=== PATIENT | male | born 1940 | race Caucasian/White ===

== ENCOUNTER → 2017-04-02 | Outpatient (CLI) | payer MEDICARE, OTHER ==
--- NOTE | 2017-04-02 11:08 | US ---
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 EXAM MEASUREMENTS: Gland Size: 5.4 x 5.5 x 3.4cm Volume: 52.5ml Predicted PSA: 6.30 ng/ml Actual PSA (if available):3.804 ng/ml Central Gland: multiple small cysts are noted throughout; multiple small calcifications are imaged; o stewart, heterogeneous area = 0.6 x 0.8 x 0.4cm is noted right CZ at periphery with Peripheral Zone and another oval heterogeneous area = 0.9 x 0.8 x 0.6cm is seen in left CZ at periphery of Peripheral Zon e. Peripheral Zone: Right mid PZ is oval, hypoechoic and heterogeneous area = 0.7 x 1.1 x 0.6cm with col or flow seen at periphery. In left PZ an oval, hypoechoic and heterogeneous area = 1.4 x 1.1 x 1.1cm is also imaged. Internal color flow is noted in this left PZ mass. Enlarged prostate gland is calculated as is >30ml. IMPRESSION: 1. Suspicious abnormalities within the peripheral zone. Tissue diagnosis is recommended. 2. Prostate glandular enlargement. Predicted PSA = volume x 0.12 ng/ml Calculated Volume = 0.5236 x L x W x H
== END | disposition home or self-care (01) ==
LOC: RADUSMAIN 08:59
PROVIDERS: ATTEND Family Medicine
DX: N40.0 Benign prostatic hyperplasia without lower urinary tract symptoms (principal)
CPT/HCPCS: 76872

== ENCOUNTER → 2017-11-11 | Outpatient (CLI) | payer MEDICARE, OTHER ==
--- NOTE | 2017-11-11 10:01 | FL ---
ESOPHOGRAM. HISTORY: Dysphagia Esophagram was performed per the air contrast technique. The patient swallowed barium and effervesce nt crystals without difficulty or delay. Esophageal peristalsis and motility appear to be within normal limits. There is no evidence for filling defect, mass or diverticulum. There is 50% luminal narrowing distal esophagus proximal to a sliding-type hiatal hernia. Mucosal fol d pattern is also increased. Correlate for possible Luis's esophagus with reflux. Subsequently single contrast cervical esophagram was performed which fails demonstrate evidence for a spiration penetration or mass. IMPRESSION: 1.There is 50% luminal narrowing distal esophagus proximal to a sliding-type hiatal hernia. Mucosal f old pattern is also increased. Correlate for possible Luis's esophagus with reflux. Direct visuali zation recommended.
== END | disposition home or self-care (01) ==
LOC: RADFLWHC 08:54
PROVIDERS: ATTEND Family Medicine
DX: K44.9 Diaphragmatic hernia without obstruction or gangrene (principal)
CPT/HCPCS: 74220

== ENCOUNTER 2017-12-03 06:19 | Day surgery (SDC) | payer MEDICARE, OTHER ==
[2017-11-29 14:01] VITALS: BMI 25.8
[2017-12-03] MEDS ORDERED: LIDOCAINE 1% 20 ML VIAL (10MG/ML) FOR IV START INTRADERMA PRN (06:52)
[2017-12-03] MEDS ORDERED: LACTATED RINGERS 1,000 ML IV SCH (07:00)
[2017-12-03 07:04] VITALS: TEMP 97.8
[2017-12-03 07:11] LABS: Glucose,Whole Blood 124 mg/dL (75-99)
[2017-12-03] MEDS ORDERED: PROPOFOL 10 MG/ML 20 ML VIAL IV ONE (08:00)
[2017-12-03 08:36] VITALS: RESP 16
--- NOTE | 2017-12-03 08:43 | P.PCN ---
Date of Procedure: 12/03/17 Procedure(s) Performed: Procedure: Esophagogastroduodenoscopy and biopsy. Preoperative diagnosis: Dysphagia and abnormal barium swallow. Postoperative diagnosis: 1. Moderately sized hiatal hernia and abnormal distal esophagus showing circumferential nodularity, friability and poor distention raising the possibility of neoplasia on a background of Luis's esophagus. 2. Multiple biopsies obtained. Preparation and sedation: Was provided by anesthesia. Brief clinical history: The patient is a 77-year-old male with history of dysphagia. He underwent a barium swallow towards the end of October that showed a hiatal hernia and a 50% decrease in the lumen of the distal esophagus. The radiologist raised the possibility of Luis's esophagus and recommended direct visualization. Procedure: With the patient on his left lateral decubitus position and after informed consent and adequate sedation, I passed the Olympus-GIF 160 video upper endoscope through the cricopharyngeus down the esophagus. The tubular esophagus continues to around 36 cm from the incisors, then there is a moderately sized hiatal hernia. There was friability and oozing of blood that was noted initially, even before any contact with the endoscope, and the distal esophagus showed circumferential nodularity, friability and poor distention. It was hard to locate a jim-GE junction because of how the proximal esophagus transitions into the distal area and because of the friability and oozing of blood, but I suspect that the abnormalities in the lower 7 or 8 cm of the esophagus are on a background of Luis's esophagus. I obtained multiple biopsies from that segment. There was no hindrance to the advancement of the endoscope into the stomach. The stomach was insufflated with air and inspected in detail including the retroflex view in the cardia. Finally, the endoscope was passed through the pylorus into the duodenum. Pyloric channel, duodenal bulb, post bulbar area and descending duodenum appeared within normal limits. The patient tolerated the procedure well and I did not obtain any additional biopsies other than in the distal esophagus as mentioned above. Plan: I summarized the findings to the patient and his family. Will await biopsy results and make further plans based on his course and biopsy results.
[2017-12-03 08:48] LABS: Glucose,Whole Blood 136 mg/dL (75-99)
[2017-12-03 08:56] VITALS: BP 118/68; PULSE 70
== END 2017-12-03 09:27 | disposition home or self-care (01) ==
LOC: ORWHC2ENDO 06:19
DX: K21.0 Gastro-esophageal reflux disease with esophagitis (principal); K44.9 Diaphragmatic hernia without obstruction or gangrene; E11.9 Type 2 diabetes mellitus without complications; K22.2 Esophageal obstruction; K22.70 Barrett's esophagus without dysplasia; E78.5 Hyperlipidemia, unspecified; I10 Essential (primary) hypertension; Z88.2 Allergy status to sulfonamides; Z88.1 Allergy status to other antibiotic agents; Z85.46 Personal history of malignant neoplasm of prostate; Z79.899 Other long term (current) drug therapy
CPT/HCPCS: 43239; J2704; 88305; 88313; 88341; 88342

== ENCOUNTER 2018-03-04 07:38 | Day surgery (SDC) | payer MEDICARE, OTHER ==
[~2018-03-04 07:38] MED LIST: LACTATED RINGERS 1,000 ML IV SCH; LIDOCAINE 1% 20 ML VIAL (10MG/ML) FOR IV START INTRADERMA PRN
[2018-03-04 09:04] VITALS: TEMP 98.2
[2018-03-04 09:34] LABS: Glucose,Whole Blood 117 mg/dL (75-99)
[2018-03-04 10:22] VITALS: RESP 16
--- NOTE | 2018-03-04 10:28 | P.PCN ---
Date of Procedure: 03/04/18 Procedure(s) Performed: Procedure: Esophagogastroduodenoscopy and biopsy. Preoperative diagnosis: History of dysphagia and abnormal barium swallow and EGD in October and November of this year. Postoperative diagnosis: 1. Moderately sized hiatal hernia with no obvious esophagitis or Luis's esophagus. 2. Nonobstructing distal esophageal stricture. 3. Mild gastritis. 4. Biopsies obtained from the antrum and esophagus. Preparation and sedation: Was provided by anesthesia. Brief clinical history: The patient is a 77-year-old male who was last evaluated in November of this year for dysphagia and abnormal barium swallow. The patient had an upper endoscopy because his barium swallow showed decrease in the lumen of the of the distal esophagus by 50% and abnormal appearance of the wall of the esophagus. His EGD showed esophagitis and possible Luis's esophagus and multiple biopsies that were obtained did not show any evidence of malignancy. However, because of his symptoms and findings, I wanted to repeat exam after medical therapy to ascertain the absence of Luis's esophagus or cancer. The patient has been doing better with medical therapy. Procedure: With the patient on his left lateral decubitus position and after informed consent and adequate sedation, I passed the Olympus-GIF H190 video upper endoscope through the cricopharyngeus down the esophagus. GE junction was around 36 cm from the incisors and there was a moderately sized hiatal hernia as previously described. The distal esophagus showed healing of the esophagitis and no evidence of Luis's esophagus. There was some decrease in the lumen but there was no hesitation to the advancing of the endoscope. The endoscope was then passed into the stomach which was insufflated with air and was inspected in detail including the retroflex view in the cardia. There was some mottling and erythema in the antrum but no ulcers or erosions. Pyloric channel, duodenal bulb, post bulbar area and descending duodenum appeared within normal limits. Based on his history, I obtained biopsies from the antrum and esophagus then the endoscope was withdrawn. The patient tolerated the procedure well. Plan: The patient was reassured. I discussed with his as well. Will continue antireflux diet and measures and acid suppressive therapy and make further plans based on his course. He will follow up with you as planned.
[2018-03-04 10:52] VITALS: BP 143/81; PULSE 64
[2018-03-04] MEDS ORDERED: PROPOFOL 10 MG/ML 20 ML VIAL IV ONE (19:57)
== END 2018-03-04 11:10 | disposition home or self-care (01) ==
LOC: ORWHC2ENDO 07:38
DX: K29.50 Unspecified chronic gastritis without bleeding (principal); K22.2 Esophageal obstruction; K44.9 Diaphragmatic hernia without obstruction or gangrene; E11.9 Type 2 diabetes mellitus without complications; I10 Essential (primary) hypertension; E78.5 Hyperlipidemia, unspecified; N40.0 Benign prostatic hyperplasia without lower urinary tract symptoms; Z85.46 Personal history of malignant neoplasm of prostate; Z79.82 Long term (current) use of aspirin; Z79.4 Long term (current) use of insulin; Z79.899 Other long term (current) drug therapy; Z88.2 Allergy status to sulfonamides; Z88.8 Allergy status to other drugs, medicaments and biological substances
CPT/HCPCS: 88305; 43239; J2704

== ENCOUNTER → 2018-09-05 | Outpatient (CLI) | payer MEDICARE, OTHER ==
--- NOTE | 2018-09-05 15:13 | US ---
EXAMINATION TYPE: US kidneys/renal and bladder DATE OF EXAM: 09/05/2018 COMPARISON: US 2016 CLINICAL HISTORY: N18.3 CKD stage 3. CKD stage 3, history of kidney cysts EXAM MEASUREMENTS: Right Kidney: 9.0 x 5.4 x 5.0 cm Left Kidney: 9.7 x 5.3 x 5.4 cm Right Kidney: 1.2 x 1.1 x 1.1cm cyst superior pole previously measuring up to 1.1 cm on the exam of . Mild pelvocaliectasis, likely transient Left Kidney: 2 cysts superior pole with largest measuring 5.2 x 5.3 x 5.2cm, 2.7 x 2.6cm medial mid p ole hypoechoic area . The larger of these measured up to 4.7 cm on the exam of 10/19/2015 and the small er measures 3.7 cm. Bladder: wnl Bilateral Jets seen: yes There is no evidence for hydronephrosis at this point in time. No nephrolithiasis is seen. The urina ry bladder is anechoic. Bilateral ureteral jets are seen. Mild cortical renal thinning is seen on th e right greater than left. IMPRESSION: 1. Bilateral cortical renal cysts are seen. Although the left 2.7 cm lesion does not appear as a simp le cyst on today's examination this appears to be present on the prior of 10/19/2015 and smaller in siz e, possibly involuting with internal hemorrhage and/or protein. This could be confirmed with CT abdom en. 2. Mild right pelvocaliectasis is likely transient.
== END | disposition home or self-care (01) ==
LOC: RADUSWWP 14:02
PROVIDERS: ATTEND Internal Medicine Nephrology
DX: N28.1 Cyst of kidney, acquired (principal)
CPT/HCPCS: 76770

== ENCOUNTER 2018-11-29 13:12 | Inpatient (IN) | payer MEDICARE, OTHER ==
[2018-11-29] MEDS ORDERED: ASPIRIN 81 MG PO STA (13:58)
[2018-11-29] MEDS ORDERED: NITROGLYCERIN OINT 1 INCH/GM PACKET TOPICAL STA (13:58)
--- NOTE | 2018-11-29 14:13 | ED ---
General Adult HPI - General Chief complaint: Chest Pain Stated complaint: Chest pressure Time Seen by Provider: 11/29/18 13:30 Source: patient, RN notes reviewed Mode of arrival: ambulatory Limitations: no limitations - History of Present Illness Initial comments: Patient is a pleasant 78-year-old male presenting to the emergency Department with complaints of chest discomfort. Onset of symptoms was this morning. Patient states symptoms lasted a couple of hours. Patient had pressure in his chest. Symptoms have now resolved. Discomfort was mild. No associated dyspnea, nausea, or diaphoresis. No history of similar symptoms previously. No radiation of discomfort. - Related Data Home Medications Medication Instructions Recorded Confirmed Ascorbic Acid [Vitamin C] 500 mg PO BID 05/21/14 09/01/18 Aspirin 81 mg PO HS 05/21/14 09/01/18 INSULIN ASPART (NovoLOG) [NovoLOG 0 unit SQ AC-TID PRN 05/21/14 09/01/18 (formulary)] Lisinopril [Zestril] 5 mg PO QAM 05/21/14 09/01/18 NIFEdipine [NIFEdipine ER] 30 mg PO HS 05/21/14 09/01/18 Lutein 40 mg PO QAM 01/27/16 09/01/18 Cholecalciferol [Vitamin D3] 2,000 unit PO Q48H 11/29/17 09/01/18 K-Zyme 1 tab PO TID 11/29/17 09/01/18 Pravastatin Sodium [Pravachol] 20 mg PO HS 11/29/17 09/01/18 Tujeo 14 units SQ HS 11/29/17 09/01/18 Omeprazole Magnesium [PriLOSEC OTC] 20 mg PO QAM 03/03/18 09/01/18 Thyrotone 500 mg PO BID 03/03/18 09/01/18 Ascorbic Acid [Vitamin C] 500 mg PO DAILY 09/01/18 09/01/18 Cholecalciferol [Vitamin D3 (25 2,000 unit PO DAILY 09/01/18 09/01/18 Mcg = 1000 Iu)] Doxycycline [Vibramycin] 100 mg PO BID 09/01/18 09/01/18 Levothyroxine Sodium [Synthroid] 50 mcg PO DAILY 09/01/18 09/01/18 Allergies Allergy/AdvReac Type Severity Reaction Status Date / Time Sulfa (Sulfonamide AdvReac Rash/Hives Verified 11/29/18 13:54 Antibiotics) sulfamethoxazole AdvReac Rash/Hives Verified 11/29/18 13:54 [From Novra] trimethoprim [From ] AdvReac Rash/Hives Verified 11/29/18 13:54 Review of Systems ROS Statement: Those systems with pertinent positive or pertinent negative responses have been documented in the HPI. ROS Other: All systems not noted in ROS Statement are negative. Constitutional: Denies: fever Eyes: Denies: eye pain ENT: Denies: ear pain Respiratory: Denies: cough, dyspnea Cardiovascular: Reports: chest pain Endocrine: Denies: fatigue Gastrointestinal: Denies: abdominal pain Genitourinary: Denies: dysuria Musculoskeletal: Denies: back pain Skin: Denies: rash Neurological: Denies: weakness Past Medical History Past Medical History: Cancer, Diabetes Mellitus, Hyperlipidemia, Hypertension, Prostate Disorder Additional Past Medical History / Comment(s): C/O "CHOKING WITH FOOD, GETS GAS BUBBLE/PAIN, BARIUM TEST SHOWED NARROWING" ESOPHAGUS. MINOR CA PROSTATE, BEING MONITORED. History of Any Multi-Drug Resistant Organisms: None Reported Past Surgical History: Hernia Repair Additional Past Surgical History / Comment(s): Bilat Cataract Surgery. ING H ERNIA REPAIR. COLONOSCOPY Past Anesthesia/Blood Transfusion Reactions: Family History of Problems w/ Anesthesia Additional Past Anesthesia/Blood Transfusion Reaction / Comment(s): BROTHER: POST-OP DELIRIUM Past Psychological History: No Psychological Hx Reported Smoking Status: Never smoker - Past Family History Mother Family Medical History: No Reported History Father Family Medical History: No Reported History Additional Family Medical History / Comment(s): no family history diagnosis, pt states everyone is pretty healthy General Exam Limitations: no limitations General appearance: alert, in no apparent distress Head exam: Present: atraumatic Eye exam: Present: normal appearance, PERRL ENT exam: Present: normal oropharynx Neck exam: Present: normal inspection Respiratory exam: Present: normal lung sounds bilaterally Cardiovascular Exam: Present: regular rate, normal rhythm Expanded Peripheral pulses: 2+: Radial (R), Radial (L), Dorsalis Pedis (R), Dorsalis Pedis (L) GI/Abdominal exam: Present: soft. Absent: tenderness Extremities exam: Present: normal inspection. Absent: pedal edema, calf tenderness Neurological exam: Present: alert Psychiatric exam: Present: normal affect, normal mood Skin exam: Present: normal color Course Vital Signs 11/29/18 11/29/18 13:53 14:51 Temperature 98 F Pulse Rate 71 70 Respiratory 20 18 Rate Blood Pressure 150/96 149/89 O2 Sat by Pulse 98 97 Oximetry EKG Findings - EKG Comments: EKG Findings:: Sinus rhythm at 67. MN 160. QRS 110. QT 406. QTc 429. Left axis. Left anterior fascicular block. No acute ST change Medical Decision Making - Medical Decision Making Patient reevaluated and resting comfortably in bed. Patient and family updated on results and plan. Dr. Lewis has been paged, covering for Dr. Garcia, covers for Dr. Marcos for admission. - Lab Data Result diagrams: 11/29/18 14:28 11/29/18 14:28 Lab Results 11/29/18 11/29/18 11/29/18 Range/Units 14:28 14:28 14:28 WBC 8.3 (3.8-10.6) k/uL RBC 5.17 (4.30-5.90) m/uL Hgb 15.0 (13.0-17.5) gm/dL Hct 46.0 (39.0-53.0) % MCV 88.9 (80.0-100.0) fL MCH 29.1 (25.0-35.0) pg MCHC 32.7 (31.0-37.0) g/dL RDW 14.3 (11.5-15.5) % Plt Count 215 (150-450) k/uL Neutrophils % 72 % Lymphocytes % 14 % Monocytes % 7 % Eosinophils % 3 % Basophils % 3 % Neutrophils # 6.0 (1.3-7.7) k/uL Lymphocytes # 1.2 (1.0-4.8) k/uL Monocytes # 0.6 (0-1.0) k/uL Eosinophils # 0.2 (0-0.7) k/uL Basophils # 0.3 H (0-0.2) k/uL PT 10.5 (9.0-12.0) sec INR 1.0 (<1.2) APTT 22.1 (22.0-30.0) sec Sodium 137 (137-145) mmol/L Potassium 3.0 L (3.5-5.1) mmol/L Chloride 103 (98-107) mmol/L Carbon Dioxide 24 (22-30) mmol/L Anion Gap 10 mmol/L BUN 25 H (9-20) mg/dL Creatinine 1.23 (0.66-1.25) mg/dL Est GFR (CKD-EPI)AfAm 66 (>60 ml/min/1.73 sqM) Est GFR (CKD-EPI)NonAf 57 (>60 ml/min/1.73 sqM) Glucose 141 H (74-99) mg/dL Calcium 10.4 H (8.4-10.2) mg/dL Magnesium 1.9 (1.6-2.3) mg/dL Total Bilirubin 1.1 (0.2-1.3) mg/dL AST 31 (17-59) U/L ALT 26 (21-72) U/L Alkaline Phosphatase 67 (38-126) U/L Creatine Kinase 137 (55-170) U/L Troponin I (0.000-0.034) ng/mL Total Protein 6.6 (6.3-8.2) g/dL Albumin 3.8 (3.5-5.0) g/dL 11/29/18 Range/Units 14:28 WBC (3.8-10.6) k/uL RBC (4.30-5.90) m/uL Hgb (13.0-17.5) gm/dL Hct (39.0-53.0) % MCV (80.0-100.0) fL MCH (25.0-35.0) pg MCHC (31.0-37.0) g/dL RDW (11.5-15.5) % Plt Count (150-450) k/uL Neutrophils % % Lymphocytes % % Monocytes % % Eosinophils % % Basophils % % Neutrophils # (1.3-7.7) k/uL Lymphocytes # (1.0-4.8) k/uL Monocytes # (0-1.0) k/uL Eosinophils # (0-0.7) k/uL Basophils # (0-0.2) k/uL PT (9.0-12.0) sec INR (<1.2) APTT (22.0-30.0) sec Sodium (137-145) mmol/L Potassium (3.5-5.1) mmol/L Chloride (98-107) mmol/L Carbon Dioxide (22-30) mmol/L Anion Gap mmol/L BUN (9-20) mg/dL Creatinine (0.66-1.25) mg/dL Est GFR (CKD-EPI)AfAm (>60 ml/min/1.73 sqM) Est GFR (CKD-EPI)NonAf (>60 ml/min/1.73 sqM) Glucose (74-99) mg/dL Calcium (8.4-10.2) mg/dL Magnesium (1.6-2.3) mg/dL Total Bilirubin (0.2-1.3) mg/dL AST (17-59) U/L ALT (21-72) U/L Alkaline Phosphatase (38-126) U/L Creatine Kinase (55-170) U/L Troponin I 0.029 (0.000-0.034) ng/mL Total Protein (6.3-8.2) g/dL Albumin (3.5-5.0) g/dL - Radiology Data Radiology results: image reviewed Disposition Clinical Impression: Chest pain Disposition: ADMITTED IP TO THIS [facility] Is patient prescribed a controlled substance at d/c from ED?: No Referrals: Ronal Marcos DO [Primary Care Provider] - 1-2 days Decision Time: 15:18
[2018-11-29 14:44] LABS: Basophils # (A) 0.3 k/uL (0-0.2); Basophils % (A) 3 %; Eosinophils # (A) 0.2 k/uL (0-0.7); Eosinophils % (A) 3 %; Lymphocytes # (A) 1.2 k/uL (1.0-4.8); Lymphocytes % (A) 14 %; MCH 29.1 pg (25.0-35.0); MCHC 32.7 g/dL (31.0-37.0); MCV 88.9 fL (80.0-100.0); Mean Platelet Volume 6.5; Monocytes # (A) 0.6 k/uL (0-1.0); Monocytes % (A) 7 %; Neutrophils % (A) 72 %; Platelet Count 215 k/uL (150-450); RBC 5.17 m/uL (4.30-5.90); RDW 14.3 % (11.5-15.5); WBC 8.3 k/uL (3.8-10.6)
[2018-11-29 14:50] LABS: Albumin 3.8 g/dL (3.5-5.0); Calcium 10.4 mg/dL (8.4-10.2); Magnesium 1.9 mg/dL (1.6-2.3); Total Bilirubin 1.1 mg/dL (0.2-1.3); Total Protein 6.6 g/dL (6.3-8.2)
[2018-11-29 14:54] LABS: Partial Thromboplastin Time 22.1 sec (22.0-30.0); Prothrombin Time 10.5 sec (9.0-12.0)
[2018-11-29] MEDS ORDERED: NITROGLYCERIN SL TABS 0.4 MG TAB SUBLINGUAL PRN (15:18)
--- NOTE | 2018-11-29 15:24 | XR ---
EXAMINATION TYPE: XR chest 2V DATE OF EXAM: 11/29/2018 COMPARISON: 05/22/2014 HISTORY: 78-year-old male with chest pain TECHNIQUE: PA and lateral views FINDINGS: Rightward patient rotation alters the normal cardiac and mediastinal contours. Heart borderline in si ze. Elongation/ectasia of the thoracic aorta. Interstitial prominence without consolidation or pleura l effusion. IMPRESSION: Limited, rotated exam. No definite acute process.
[2018-11-29] MEDS ORDERED: ALPRAZolam 0.25 MG TAB PO PRN (16:45)
[2018-11-29] MEDS ORDERED: TEMAZEPAM 15 MG CAP PO PRN (16:45)
[2018-11-29] MEDS ORDERED: ACETAMINOPHEN TAB 500 MG TAB PO PRN (16:45)
[2018-11-29] MEDS ORDERED: Magnesium Replacement Protocol 1 EACH MISC MISCELLANE PRN (16:46)
[2018-11-29] MEDS ORDERED: Potassium Replacement Protocol 1 EACH MISC MISCELLANE PRN (16:46)
[2018-11-29 16:48] LABS: Glucose,Whole Blood 138 mg/dL (75-99)
[2018-11-29] MEDS: INSULIN ASPART (NovoLOG) 100 UNIT/ML VIAL SQ SCH ×2 (17:19→20:13)
[2018-11-29] MEDS: NITROGLYCERIN OINT 1 INCH/GM PACKET TOPICAL SCH (17:19)
--- NOTE | 2018-11-29 18:31 | HP ---
HISTORY AND PHYSICAL CHIEF COMPLAINT: Chest pain. HISTORY OF PRESENT ILLNESS: This 78-year-old gentleman with a past medical history of diabetes mellitus, hypertension, hyperlipidemia, history of memory impairment, history of hernia repair, history of DJD being followed by Dr. Marcos in the outpatient setting, was complaining of right hip pain. The patient also had chest pain which is felt in the anterior part of chest, which he felt this morning, lasted for a couple of hours. Patient came to [facility] and was admitted to the hospital for further evaluation and treatment. Initial evaluation including troponins shows 0.0229. The chest x- ray showed no acute abnormality. Cardiology evaluation has been sought. There is no history of fever, rigors or chills. No headache, loss of consciousness or seizures. PAST MEDICAL HISTORY: History of diabetes, hypertension, hyperlipidemia, history of memory impairment, prostate disorder. MEDICATIONS: Prior to admission include: 3. Synthroid 50 mcg. 4. Toujeo 40 units subcu q.h.s. 5. Vitamin D3 2000 q.48h. 6. Vitamin C 500 mg p.o. b.i.d. 7. Pravachol 20 mg q.h.s. 8. Prilosec OTC 20 mg q.a.m. 9. Nifedipine ER 30 mg q.h.s. 10.Lutein 40 mg q.a.m. 11.Zestril 5 mg p.o. daily. 12.NovoLog a.c. t.i.d. p.r.n. 13.Aspirin 81 mg q.h.s. ALLERGIES: ANTIBIOTICS, SEPTRA. FAMILY HISTORY: No history of heart disease or strokes in the family. SOCIAL HISTORY: No history of smoking. No history of alcohol. REVIEW OF SYSTEMS: ENT: No diminished hearing. Diminished vision. CARDIOVASCULAR: No angina or palpitations. RESPIRATORY: As mentioned earlier. GI no nausea or vomiting. no dysuria. CENTRAL NERVOUS SYSTEM: No numbness or weakness. ALLERGY/IMMUNOLOGY: No asthma or hayfever. MUSCULOSKELETAL: As mentioned earlier. HEMATOLOGY/ONCOLOGY: No history of anemia. ENDOCRINE: No history of diabetes or hypothyroidism. CONSTITUTIONAL: As mentioned earlier. DERMATOLOGY: Negative. RHEUMATOLOGY: Negative. PSYCHIATRY: As mentioned earlier. PHYSICAL EXAM: Alert and oriented x3. Pulse 75. Blood pressure 135/89, respiration 16, temperature 98.1, pulse ox 97% on room air. HEENT: Conjunctivae normal. NECK: No JVD. CARDIOVASCULAR: S1, S2 muffled. RESPIRATORY: Breath sounds diminished in the bases. No rhonchi. No crackles. ABDOMEN: Soft, nontender. No mass palpable. LEGS: No edema. No swelling. NERVOUS SYSTEM: Higher functions as mentioned earlier. Moves all four limbs. No focal deficits. LYMPHATICS: No lymph nodes palpable in the neck, axillae or groin. SKIN: No ulcers, no rashes and no bleeding. JOINTS: No active deforming arthropathy. LABS: CBC within normal limits. Sodium 137. Potassium 3 and calcium is 10.4. ASSESSMENT: 1. Chest pain possible unstable angina. 2. Right hip pain possible degenerative joint disease. 3. Hypokalemia. 4. Increased calcium. 5. Diabetes mellitus type 2. 6. Hypertension. 7. Hyperlipidemia. 8. History of memory impairment. 9. History of prostate disorder. 10.History of hernia repair. 11.History of dysphagia with barium tests showing narrowing of the esophagus. RECOMMENDATIONS AND DISCUSSION: This 78-year-old gentleman who presented with multiple complex medical issues, we will monitor the patient closely, continue the current medications, management and symptomatic treatment. I recommend cardiology consultation. Rule out myocardial infarction. Otherwise, the patient had EGD in February showed a moderate-sized hiatal hernia without any obvious esophagitis or Luis's esophagus and nonobstructive distal esophageal stricture. I would also recommend followup with GI as an outpatient. Recommend close followup with Dr. Marcos in the outpatient setting also. See orders for details. MMODL / IJN: [id number] / JOSE
[2018-11-29] MEDS: 0.9% NACL WITH KCL 40 MEQ/L 1,000 ML IV SCH (19:24)
[2018-11-29 19:33] LABS: Amorphous Sediment,Urine Rare /hpf; Appearance,Urine Clear (Clear); Bilirubin,Urine Negative (Negative); Blood,Urine Negative (Negative); Color,Urine Yellow; Glucose,Urine (UA) Negative (Negative); Hyaline Casts,Urine 7 /lpf (0-2); Ketones,Urine Negative (Negative); Leukocyte Esterase,Urine Large (Negative); Mucus,Urine Rare /hpf; Nitrite,Urine Negative (Negative); Protein,Urine Trace (Negative); RBC,Urine 1 /hpf (0-5); Specific Gravity,Urine 1.013 (1.001-1.035); Urobilinogen,Urine <2.0 mg/dL (<2.0); WBC,Urine 93 /hpf (0-5)
[2018-11-29 19:50] LABS: Glucose,Whole Blood 216 mg/dL (75-99)
[2018-11-29] MEDS: INSULIN DETEMIR (LEVEMIR) 100 UNIT/ML SYR SQ SCH (20:14)
[2018-11-29] MEDS: NIFEdipine XL 30 MG TAB.ER.24 PO SCH (20:15)
[2018-11-29] MEDS: ASCORBIC ACID 500 MG TAB PO SCH (20:15)
[2018-11-29] MEDS ORDERED: [UNRECOGNIZED DRUG - OTHER] PO SCH (21:00)
[2018-11-29] MEDS ORDERED: PRAVASTATIN SODIUM 20 MG TAB PO SCH (21:00)
[2018-11-29] MEDS: HYDROcodone/APAP 5-325MG 1 EACH TAB PO PRN (21:16)
[2018-11-29] MEDS ORDERED: [UNRECOGNIZED DRUG - OTHER] PO SCH (22:00)
[2018-11-30] MEDS: NITROGLYCERIN OINT 1 INCH/GM PACKET TOPICAL SCH ×5 (02:08→23:25)
[2018-11-30 02:49] LABS: Basophils # (A) 0.2 k/uL (0-0.2); Basophils % (A) 2 %; Eosinophils # (A) 0.3 k/uL (0-0.7); Eosinophils % (A) 3 %; HCT 43.3 % (39.0-53.0); Lymphocytes # (A) 1.3 k/uL (1.0-4.8); Lymphocytes % (A) 14 %; MCH 29.2 pg (25.0-35.0); MCHC 32.3 g/dL (31.0-37.0); MCV 90.4 fL (80.0-100.0); Mean Platelet Volume 6.4; Monocytes # (A) 0.7 k/uL (0-1.0); Monocytes % (A) 8 %; Neutrophils # (A) 6.4 k/uL (1.3-7.7); Neutrophils % (A) 72 %; Platelet Count 209 k/uL (150-450); RBC 4.79 m/uL (4.30-5.90); RDW 14.5 % (11.5-15.5); WBC 8.9 k/uL (3.8-10.6)
[2018-11-30 02:59] LABS: Calcium 9.3 mg/dL (8.4-10.2); Magnesium 1.9 mg/dL (1.6-2.3); Potassium 3.3 mmol/L (3.5-5.1)
[2018-11-30] MEDS ORDERED: HEPARIN SODIUM,PORCINE 5,000 UNIT/ML 1 ML VIAL IV ONE (03:30)
[2018-11-30] MEDS ORDERED: HEPARIN SODIUM,PORCINE 5,000 UNIT/ML 1 ML VIAL IV PRN (03:30)
[2018-11-30] MEDS: HEPARIN SOD,PORK IN 0.45% NACL 25,000 UNIT in 0.45% NACL 1 250ML.BAG IV SCH ×2 (03:56→23:26)
[2018-11-30] MEDS: LEVOTHYROXINE 50 MCG TAB PO SCH (05:31)
[2018-11-30] MEDS: HYDROcodone/APAP 5-325MG 1 EACH TAB PO PRN ×2 (06:27→18:47)
[2018-11-30 06:38] LABS: Glucose,Whole Blood 81 mg/dL (75-99)
[2018-11-30] MEDS: 0.9% NACL WITH KCL 40 MEQ/L 1,000 ML IV SCH ×2 (07:16→22:13)
[2018-11-30] MEDS: INSULIN ASPART (NovoLOG) 100 UNIT/ML VIAL SQ SCH ×4 (07:16→20:12)
[2018-11-30] MEDS ORDERED: LUTEIN 40 MG PO SCH (09:00)
[2018-11-30] MEDS ORDERED: NON FORMULARY DRUG (Omeprazole Magnesium [Prilosec Otc] 20 MG) PO SCH (09:00)
[2018-11-30] MEDS ORDERED: ASPIRIN 325 MG TAB PO SCH (09:00)
[2018-11-30] MEDS ORDERED: NITROGLYCERIN SL TABS 0.4 MG TAB SUBLINGUAL PRN ×2 (09:15→11:03)
[2018-11-30] MEDS ORDERED: ALPRAZolam 0.25 MG TAB PO PRN (09:15)
[2018-11-30] MEDS ORDERED: ATORVASTATIN 80 MG TAB PO STA (09:15)
[2018-11-30] MEDS ORDERED: ASPIRIN 325 MG TAB PO STA (09:15)
[2018-11-30] MEDS ORDERED: ALPRAZolam 0.5 MG TAB PO PRN (09:15)
[2018-11-30] MEDS ORDERED: SODIUM CHLORIDE 0.9% 1,000 ML in EMPTY BAG 1 BAG IV ONE (09:15)
[2018-11-30] MEDS: CHOLECALCIFEROL 1,000 UNIT TAB PO SCH (09:33)
[2018-11-30] MEDS: LISINOPRIL 5 MG TAB PO SCH (09:33)
[2018-11-30] MEDS: ASCORBIC ACID 500 MG TAB PO SCH ×2 (09:33→20:12)
[2018-11-30] MEDS: PANTOPRAZOLE 40 MG TABLET PO SCH (09:34)
[2018-11-30] MEDS ORDERED: fentaNYL (PF) 50 MCG/ML 2 ML AMP ONE (09:55)
[2018-11-30] MEDS ORDERED: SODIUM CHLORIDE 0.9% 500 ML 500 ML IV ONE (10:01)
[2018-11-30] MEDS: fentaNYL (PF) 50 MCG/ML 2 ML AMP IV ONE ×2 (10:07→10:52)
[2018-11-30] MEDS ORDERED: MIDAZOLAM (PF) 2 MG/2 ML VIAL IV ONE (10:07)
[2018-11-30] MEDS ORDERED: LIDOCAINE 1% INJ 10MG/ML (20 ML MDV) SQ ONE (10:09)
--- NOTE | 2018-11-30 10:32 | CONS ---
CONSULTATION CHIEF COMPLAINT: Chest pain. This is a 78-year-old gentleman with history of hypertension, diabetes, dyslipidemia, who presented to the hospital complaining of chest pain. He describes it as a precordial chest pressure, moderate to severe intensity, came on at rest, lasted for about 30 minutes, associated with some diaphoresis. Came to the emergency room and was admitted. EKG did not reveal acute ischemic changes. Cardiac enzymes came back elevated at 0.035. At the time of my evaluation this morning, he is chest pain-free, hemodynamically stable and in no apparent distress. His creatinine is 1.1, hemoglobin is 14. Given patient's risk factors, symptoms and the elevated troponin, I advised him to undergo cardiac catheterization. He had been explained of risks, benefits and alternatives, understood and accepted. PAST MEDICAL HISTORY: Significant for hypertension, diabetes, dyslipidemia. ALLERGIES: TO SULFA. MEDICATIONS: At home included insulin, Synthroid, Pravachol, Nifedipine, and Zestril along with aspirin. FAMILY HISTORY: Negative for premature coronary artery disease. SOCIAL HISTORY: Negative for current smoking, EtOH abuse, or drug abuse. REVIEW OF SYSTEMS: HEENT is unremarkable. CARDIAC as described above. RESPIRATORY as described above. GI: Negative. GENITOURINARY: Negative. ALLERGY/IMMUNOLOGY: Negative. SKIN negative. MUSCULOSKELETAL: Negative. ENDOCRINE: Negative. DERM negative. CONSTITUTIONAL: Unremarkable. ONCOLOGICAL: Negative. Rest of the system review is not relevant. EXAM: Comfortable at rest. Vital signs are stable. There is no jugular venous distention. Carotid upstroke is normal. There is no bruit. Chest exam reveals good air entry bilaterally. Heart exam reveals first and second heart sounds. No gallop. No murmur. No rub. Abdomen is soft, nontender. Exam of extremities did not reveal any edema. Peripheral pulses are felt. ASSESSMENT: Acute non ST-segment elevation myocardial infarction. PLAN: I advised the patient to undergo cardiac catheterization with a view to performing angioplasty. The patient understands risks, benefits. MMODL / IJN: [id number] /
[2018-11-30] MEDS ORDERED: BIVALIRUDIN BOLUS 250 MG/50 ML IV ONE (10:43)
[2018-11-30] MEDS ORDERED: BIVALIRUDIN 250 MG in SODIUM CHLORIDE 0.9% 37 ML IV ONE (10:44)
[2018-11-30] MEDS ORDERED: CLOPIDOGREL 75 MG TAB ONE (10:45)
[2018-11-30] MEDS ORDERED: CLOPIDOGREL 75 MG TAB PO ONE (10:49)
[2018-11-30] MEDS ORDERED: IOPAMIDOL-370 125ML BTL INJ ONE (10:53)
[2018-11-30] MEDS ORDERED: MAG HYDROX/AL HYDROX/SIMETH 30 ML CUP PO PRN (11:03)
[2018-11-30] MEDS ORDERED: ZOLPIDEM 5 MG TAB PO PRN (11:03)
[2018-11-30] MEDS ORDERED: ATROPINE SULFATE 0.1 MG/ML 10ML SYRINGE IV PRN (11:03)
[2018-11-30] MEDS ORDERED: RX INFO: IV CONTRAST WAS GIVEN 1 EACH MISC MISCELLANE PRN (11:03)
--- NOTE | 2018-11-30 11:09 | P.PCN ---
Date of Procedure: 11/30/18 Operative Findings: PERCUTANEOUS CORONARY INTERVENTION Performing physician Raudel Mcleod M.D., seismic observer Procedure performed Successful stenting of the mid left anterior descending artery using 3.0 x 18 mm Xience ANUP with an excellent angiographic results and reduction of stenosis from 80% to 0% and without any complication Indication This is a pleasant 78-year-old gentleman with hypertension and dyslipidemia who presented to the hospital with a chest discomfort and ruled in for acute non-ST patient myocardial infarction. He underwent a heart catheterization by Dr. Foster and was found to have severe disease involving the mid LAD. The decision was made towards percutaneous coronary intervention Approach Right common femoral artery. Complication None Level of sedation Moderate with a sedation length of 18 minutes Procedure description Please refer to diagnosed diagnostic heart catheterization was performed by Dr. Foster early her today. Anticoagulation was initiated using Angiomax. Subsequently I did engage the left main using JL4 guide. A run-through wire was used to wire the LAD. The wire was advanced to the distal LAD distal to that lesion. I did direct stenting of the lesion using 3.0 x 18 mm Xience ANUP where the stent was positioned under fluoroscopy guidance and deployed under 14 gregory for 20 seconds. I post dilated the stent using 3.0 x 12 mm NC balloon which was inflated under 20 gregory for 20 seconds. The following angiogram showed an excellent angiographic results with reduction of stenosis from 80% to 0% with a good flow in the LAD and without any complication. Postprocedure management #1 dual antiplatelet therapy #2 risk factors modifications #3 aggressive was told control #4 follow-up with the patient
[2018-11-30] MEDS ORDERED: SODIUM CHLORIDE 0.9% 1,000 ML IV SCH (11:15)
[2018-11-30 11:52] LABS: Glucose,Whole Blood 88 mg/dL (75-99)
--- NOTE | 2018-11-30 14:08 | CC ---
CARDIAC CATHETERIZATION REPORT REFERRING PHYSICIAN: Dr. Lewis. INDICATION: Non ST-segment elevation SD. PROCEDURE NOTE: After obtaining informed consent, left heart catheterization, coronary angiogram are performed via the right femoral artery using standard Farhad catheters. The patient tolerated the procedure well without any obvious immediate complications. FINDINGS: HEMODYNAMICS: Left ventricular end-diastolic pressure is 4 mm. There is no significant gradient across the aortic valve. LEFT VENTRICULOGRAM: Ventriculogram is not performed. ANGIOGRAPHIC DATA: Left main coronary artery: Left main coronary artery is a normal-sized vessel and is free of stenosis. Divides into left anterior descending coronary artery and circumflex coronary artery. Mid LAD shows 60% to 70% stenosis. Circumflex coronary artery is a nondominant vessel and is free of significant disease. Right coronary artery is a large dominant vessel with a lesion in the marginal branch. The right coronary artery is free of significant stenosis. One of the acute marginal branches show a 90% stenosis in its very distal portion. CONCLUSIONS: A 60-70% stenosis involving mid LAD which is probably the vessel responsible for the patient's symptoms and elevated troponin. I am going to ask Dr. Mcleod, the on-call boat loader, to evaluate the angiographic data and advise on stenting of the LAD. MMODL / IJN: [id number] /
[2018-11-30 16:51] LABS: Glucose,Whole Blood 129 mg/dL (75-99)
[2018-11-30 20:08] LABS: Glucose,Whole Blood 192 mg/dL (75-99)
[2018-11-30 20:12] LABS: Potassium 3.6 mmol/L (3.5-5.1)
[2018-11-30] MEDS: INSULIN DETEMIR (LEVEMIR) 100 UNIT/ML SYR SQ SCH (20:12)
[2018-11-30] MEDS: NIFEdipine XL 30 MG TAB.ER.24 PO SCH (20:12)
--- NOTE | 2018-11-30 22:34 | PN ---
PROGRESS NOTE DATE OF SERVICE: 11/30/2018. This 78-year-old gentleman who was admitted with chest pain, possible unstable angina, had cardiac catheterization and stenting to the LAD. No chest pain. No palpitations. No fever. Patient is mildly confused according to the . EXAM: Alert and oriented x2. Pulse is 47, blood pressure 137/70, respiration 20, temperature 97.4, pulse ox 97% on room air. HEENT: Conjunctivae normal. NECK: No jugular venous distention. CARDIOVASCULAR: S1, S2 muffled. RESPIRATORY: Breath sounds diminished in the bases. No rhonchi. No crackles. Abdomen is soft, nontender. LEGS are no edema, no swelling. CENTRAL NERVOUS SYSTEM: No focal deficits. LABS: CBC within normal limits. Sodium 130. Potassium 3.3. ASSESSMENT: 1. Chest pain, possible unstable angina, status post cardiac catheterization, left anterior descending coronary artery stenting. 2. Troponin 0.035. 3. Hypokalemia. 4. Right hip pain, possible degenerative joint disease. 5. Increased calcium. 6. Diabetes mellitus type 2. 7. Hypertension. 8. Hyperlipidemia. 9. History of memory impairment. 10.History of prostate disorder. 11.History of hernia repair. 12.History of dysphagia with barium test showing narrowing of the esophagus. RECOMMENDATIONS AND DISCUSSION: Recommend to continue current medications, continue with monitoring, management and symptomatic treatment. I recommend the patient follow up closely with Dr. Marcos after discharge to address some of the above mentioned medical issues. Otherwise, closely monitor. Repeat labs will be ordered. Potassium supplementation and closely follow with Cardiology. Further recommendations to follow. MMODL / IJN: [id number] /
[2018-12-01] MEDS: NITROGLYCERIN OINT 1 INCH/GM PACKET TOPICAL SCH ×2 (05:03→12:11)
[2018-12-01 05:51] LABS: Anisocytosis Slight; Basophils # (A) 0.1 k/uL (0-0.2); Basophils % (A) 1 %; Eosinophils # (A) 0.4 k/uL (0-0.7); Eosinophils % (A) 5 %; HCT 44.6 % (39.0-53.0); HGB 15.1 gm/dL (13.0-17.5); Lymphocytes # (A) 0.9 k/uL (1.0-4.8); Lymphocytes % (A) 12 %; MCH 31.1 pg (25.0-35.0); MCHC 33.7 g/dL (31.0-37.0); MCV 92.3 fL (80.0-100.0); Mean Platelet Volume 6.6; Monocytes # (A) 0.5 k/uL (0-1.0); Monocytes % (A) 7 %; Neutrophils # (A) 5.2 k/uL (1.3-7.7); Neutrophils % (A) 74 %; Platelet Count 206 k/uL (150-450); RBC 4.84 m/uL (4.30-5.90)
[2018-12-01 06:02] LABS: Calcium 8.6 mg/dL (8.4-10.2); Potassium 3.9 mmol/L (3.5-5.1)
[2018-12-01] MEDS: LEVOTHYROXINE 50 MCG TAB PO SCH (06:27)
[2018-12-01] MEDS: PANTOPRAZOLE 40 MG TABLET PO SCH (06:27)
[2018-12-01 06:29] LABS: Glucose,Whole Blood 107 mg/dL (75-99)
[2018-12-01] MEDS: INSULIN ASPART (NovoLOG) 100 UNIT/ML VIAL SQ SCH ×4 (06:29→20:54)
[2018-12-01] MEDS: CLOPIDOGREL 75 MG TAB PO SCH (08:25)
[2018-12-01] MEDS: LISINOPRIL 5 MG TAB PO SCH (08:25)
[2018-12-01] MEDS: ASCORBIC ACID 500 MG TAB PO SCH ×2 (08:25→20:07)
[2018-12-01] MEDS: 0.9% NACL WITH KCL 40 MEQ/L 1,000 ML IV SCH (08:26)
[2018-12-01] MEDS ORDERED: ASPIRIN 325 MG TAB PO SCH (09:00)
--- NOTE | 2018-12-01 10:51 | ECHOF ---
Referral Reason:chest pain MEASUREMENTS -------- HEIGHT: 180.3 cm WEIGHT: 81.2 kg BP: 147/88 IVSd: 1.3 cm (0.6 - 1.1) LVIDd: 3.9 cm (3.9 - 5.3) LVPWd: 1.0 cm (0.6 - 1.1) IVSs: 1.5 cm LVIDs: 2.5 cm LVPWs: 1.6 cm LAESV Index (A-L): 35.40 ml/m Ao Diam: 3.5 cm (2.0 - 3.7) AV Cusp: 2.1 cm (1.5 - 2.6) LA Diam: 2.7 cm (2.7 - 3.8) MV EXCURSION: 11.800 mm (> 18.000) MV EF SLOPE: 49 mm/s (70 - 150) EPSS: 0.6 cm MV E Hosea: 0.77 m/s MV DecT: 312 ms MV A Hosea: 1.17 m/s MV E/A Ratio: 0.66 RAP: 5.00 mmHg RVSP: 29.63 mmHg FINDINGS -------- Sinus rhythm. This was a technically adequate study. The left ventricular size is normal. There is mild concentric left ventricular hypertrophy. Cyndie l LAP Grade 1 Diastolic Dysfunction. The right ventricle is normal in size. LA is moderately dilated 34-39 ml/m2 The right atrial size is normal. Interatrial and interventricular septum intact. There is mild aortic valve sclerosis. Mild mitral annular calcification present. Mild mitral regurgitation is present. The tricuspid valve appears structurally normal. Mild tricuspid regurgitation present. Right vent ricular systolic pressure is normal at < 35 mmHg. There is no pulmonic regurgitation present. The aortic root size is normal. Normal inferior vena cava with normal inspiratory collapse consistent with estimated right atrial pre ssure of 5 mmHg. The flow patterns, measured by Doppler, appear normal. There is no pericardial effusion. CONCLUSIONS -------- 1. Sinus rhythm. 2. This was a technically adequate study. 3. The left ventricular size is normal. 4. There is mild concentric left ventricular hypertrophy. 5. Normal LAP Grade 1 Diastolic Dysfunction. 6. LA is moderately dilated 34-39 ml/m2 7. There is mild aortic valve sclerosis. 8. Mild mitral annular calcification present. 9. Mild mitral regurgitation is present. 10. The tricuspid valve appears structurally normal. 11. Mild tricuspid regurgitation present. 12. Right ventricular systolic pressure is normal at < 35 mmHg. 13. There is no pulmonic regurgitation present. 14. The aortic root size is normal. 15. Normal inferior vena cava with normal inspiratory collapse consistent with estimated right atrial pressure of 5 mmHg. 16. The flow patterns, measured by Doppler, appear normal. 17. There is no pericardial effusion. KIT ASSEMBLER: Floresita Coon RDCS
[2018-12-01 11:45] LABS: Glucose,Whole Blood 148 mg/dL (75-99)
[2018-12-01 11:54] VITALS: BMI 25.7
--- NOTE | 2018-12-01 14:21 | P.PN ---
Subjective Progress Note Date: 12/01/18 This is a 78 year old gentleman who presented to the hospital with a non-ST elevation VA, underwent successful stenting of the mid LAD. He does have history of hypertension and hyperlipidemia, he is a nonsmoker. Patient was seen and examined this morning, sitting up in his chair at bedside. He feels well, denies any chest pain in his breathing is stable. EKG shows normal sinus rhythm with no changes from post-PCI. Blood pressure 150/70 with a heart rate in the 70s, 97% on room air. White blood cell count 7.0, hemoglobin 15.1, platelet count 206. Sodium 139, potassium 3.9, BUN 19 and creatinine 1.0. We will discontinue the Procardia and start the patient on a beta nydia today. Objective - Vital Signs Vital signs: Vital Signs Temp 97.4 F L 12/01/18 12:00 Pulse 62 12/01/18 12:00 Resp 20 12/01/18 12:00 BP 158/91 12/01/18 12:00 Pulse Ox 98 12/01/18 12:00 Intake & Output 11/30/18 12/01/18 12/01/18 18:59 06:59 18:59 Intake Total 260 600 236 Output Total 500 400 Balance -240 600 -164 Weight 81.2 kg 81.2 kg Intake: IV 260 Intake, IV Titration 600 Amount Sodium Chloride 0.9% 1, 600 000 ml @ 75 mls/hr IV . [id number] [facility] Rx#:[id number] Oral 236 Output: Urine 500 400 Other: Voiding Method Toilet Toilet Urinal Urinal # Voids 500 1 1 - Exam PHYSICAL EXAMINATION: GENERAL: 78-year-old gentleman in no acute distress at the time of my examination HEENT: Head is atraumatic, normocephalic. Pupils equal, round. Sclera anicteric. Conjunctiva are clear. Mucous membranes of the mouth are moist. Neck is supple. There is no elevated jugular venous pressure. No carotid bruit is heard. HEART EXAMINATION: Heart S1, S2 normal. No murmur or gallop heard. CHEST EXAMINATION: Lungs are clear to auscultation and precussion. No chest wall tenderness is noted on palpation or with deep breathing. ABDOMEN: Soft, nontender. Bowel sounds are heard. No organomegaly noted. EXTREMITIES: 2+ peripheral pulses with no evidence of peripheral edema and no ca lf tenderness noted. Right groin is soft, no evidence of any hematoma. NEUROLOGIC patient is awake, alert and oriented X3 . - Labs CBC & Chem 7: 12/01/18 05:26 12/01/18 05:26 Labs: Abnormal Lab Results - Last 24 Hours (Table) 11/30/18 11/30/18 12/01/18 Range/Units 16:49 20:08 05:26 RDW 16.0 H (11.5-15.5) % Lymphocytes # 0.9 L (1.0-4.8) k/uL Glucose (74-99) mg/dL POC Glucose (mg/dL) 129 H 192 H (75-99) mg/dL 12/01/18 12/01/18 12/01/18 Range/Units 05:26 06:28 11:44 RDW (11.5-15.5) % Lymphocytes # (1.0-4.8) k/uL Glucose 115 H (74-99) mg/dL POC Glucose (mg/dL) 107 H 148 H (75-99) mg/dL Microbiology - Last 24 Hours (Table) 11/29/18 19:00 Urine Culture - Final Urine,Clean Catch Assessment and Plan Plan: Assessment and plan #1 non-ST elevation VA status post successful stenting of the mid LAD #2 hypertension #3 hyperlipidemia Plan Echocardiogram with Doppler study was performed which revealed a normal left ventricular systolic function. We'll discontinue the Procardia and start the patient on metoprolol sesame today. To continue to observe for another 24 h ours. Plan for discharge home in the morning if stable. DNP note has been reviewed, I agree with a documented findings and plan of care. Patient was seen and examined.
--- NOTE | 2018-12-01 14:57 | P.PN ---
Subjective Progress Note Date: 12/01/18 Principal diagnosis: Patient is sitting up at the side of the bed in the chair in no acute distress. Patient underwent cardiac catheterization with stenting to the LAD. Cardiology is following closely. Patient denies any chest pain, palpitations, or shortness of breath at this time. Patient is afebrile. Patient denies any nausea or vomiting and has been tolerating diet. Per nursing staff there was some blood clots noted in the urine this afternoon. Patient is currently on IV antibiotics in the form of Rocephin and will continue at this time. Will continue to monitor vital signs, intake and output, and labs closely. Per cardiology recommendations patient will be started on a beta nydia today and will be observed next 24 hours with a possible discharge in the morning if stable. Guarded prognosis. Objective - Vital Signs Vital signs: Vital Signs Temp 97.4 F L 12/01/18 12:00 Pulse 62 12/01/18 12:00 Resp 20 12/01/18 12:00 BP 158/91 12/01/18 12:00 Pulse Ox 98 12/01/18 12:00 Intake & Output 11/30/18 12/01/18 12/01/18 18:59 06:59 18:59 Intake Total 260 600 354 Output Total 500 400 Balance -240 600 -46 Weight 81.2 kg 81.2 kg Intake: IV 260 Intake, IV Titration 600 Amount Sodium Chloride 0.9% 1, 600 000 ml @ 75 mls/hr IV . [id number] [facility] Rx#:[id number] Oral 354 Output: Urine 500 400 Other: Voiding Method Toilet Toilet Urinal Urinal # Voids 500 1 1 - Exam Gen: This is a 78-year-old male sitting up at the bedside chair in no acute distress. Vital signs are stable. Blood pressure is 131/69, pulse is 78, respirations are 20, oxygen saturation is 97% on room air. HEENT: Head is atraumatic, normocephalic. Pupils equal, round. Sclerae is anicteric. NECK: Supple. No JVD. No lymphadenopathy. No thyromegaly. LUNGS: Diminished breath sounds at the bases with no wheezes or rhonchi noted. No intercostal retractions. HEART: S1, S2 muffled ABDOMEN: Soft. Bowel sounds are present. No masses. No tenderness. EXTREMITIES: No pedal edema. No calf tenderness. NEUROLOGICAL: Patient is awake, alert and oriented x3. Cranial nerves 2 through 12 are grossly intact. - Labs CBC & Chem 7: 12/01/18 05:26 12/01/18 05:26 Labs: Abnormal Lab Results - Last 24 Hours (Table) 11/30/18 11/30/18 12/01/18 Range/Units 16:49 20:08 05:26 RDW 16.0 H (11.5-15.5) % Lymphocytes # 0.9 L (1.0-4.8) k/uL Glucose (74-99) mg/dL POC Glucose (mg/dL) 129 H 192 H (75-99) mg/dL 12/01/18 12/01/18 12/01/18 Range/Units 05:26 06:28 11:44 RDW (11.5-15.5) % Lymphocytes # (1.0-4.8) k/uL Glucose 115 H (74-99) mg/dL POC Glucose (mg/dL) 107 H 148 H (75-99) mg/dL Microbiology - Last 24 Hours (Table) 11/29/18 19:00 Urine Culture - Final Urine,Clean Catch Assessment and Plan Assessment: Chest pain, possible unstable angina, status post cardiac catheterization, left anterior descending coronary artery stenting Troponin 0.035 Hematuria, possibly due to dual anticoagulation therapy, possibly due to recent urinary catheter placement Hypokalemia right hip pain, possible degenerative joint disease Increased calcium Diabetes mellitus type 2 Hypertension Hyperlipidemia History of memory impairment History of prostate disorder History of hernia repair History of dysphagia with barium test showing narrowing of the esophagus Recommendations and discussion: Recommend continue current medications, continue with monitoring, and symptomatic treatment. Cardiology is following closely. Patient was started on a beta nydia today. We'll monitor vital signs and labs closely. Patient is currently on IV antibiotics in the form of Rocephin and will continue at this time. Will repeat labs in the morning. Guarded prognosis. Further instructions to follow.
[2018-12-01 16:35] LABS: Glucose,Whole Blood 153 mg/dL (75-99)
--- NOTE | 2018-12-01 17:13 | PN ---
PROGRESS NOTE DATE OF SERVICE: 12/01/2018. This 78-year-old gentleman was admitted with chest pain and with acute ooj-WF-glbwfln- elevation myocardial infarction. He had cardiac catheterization and stenting of the LAD. No chest pain. No palpitations. No fever. Cardiology is following the patient. Medication has been adjusted. PHYSICAL EXAMINATION: Alert and oriented x3. Pulse 62, blood pressure 150/91, respiration 20, temperature 97.4, pulse ox 98% on room air. HEENT: Conjunctivae normal. NECK: No jugular venous distention. CARDIOVASCULAR SYSTEM: S1, S2 muffled. RESPIRATORY SYSTEM: Breath sounds diminished at the bases. No rhonchi. No crackles. ABDOMEN: Soft, non-tender. No mass palpable. LEGS: No edema. No swelling. NERVOUS SYSTEM: No focal deficit. LABS: CBC within normal limits. Glucose 115, 107. ASSESSMENT: 1. Chest pain; possible acute adt-CT-idxinyz-elevation myocardial infarction, status post cardiac catheterization, LAD stenting. 2. Troponin 0.035. 3. Hypokalemia, improved. 4. Right hip pain, possibly degenerative joint disease. 5. Increased calcium, improved. 6. Diabetes mellitus, type 2. 7. Hypertension. 8. Hyperlipidemia. 9. History of memory impairment with possible early dementia. 10.History of prostate disorder. 11.History of hernia repair. 12.History of dysphagia with barium test showing narrowing of the esophagus. RECOMMENDATIONS AND DISCUSSION: I recommend to continue current medications, continue with the monitoring, symptomatic treatment. Otherwise at this time continue with the beta blockers, antiplatelet agents. Closely follow with Cardiology. Recommend outpatient followup with Dr. Marcos regarding evaluation of dementia with possibly neurology evaluation. Further recommendations to follow. MMODL / IJN: [id number] /
[2018-12-01 17:18] LABS: Glucose,Whole Blood 150 mg/dL (75-99)
[2018-12-01] MEDS: HYDROcodone/APAP 5-325MG 1 EACH TAB PO PRN (20:07)
[2018-12-01 20:13] LABS: Glucose,Whole Blood 157 mg/dL (75-99)
[2018-12-01] MEDS: INSULIN DETEMIR (LEVEMIR) 100 UNIT/ML SYR SQ SCH (20:53)
[2018-12-01] MEDS ORDERED: PRAVASTATIN SODIUM 20 MG TAB PO SCH (21:00)
[2018-12-02] MEDS: HYDROcodone/APAP 5-325MG 1 EACH TAB PO PRN ×2 (00:43→05:46)
[2018-12-02 01:32] VITALS: RESP 18
[2018-12-02] MEDS: 0.9% NACL WITH KCL 40 MEQ/L 1,000 ML IV SCH (02:04)
[2018-12-02] MEDS: LEVOTHYROXINE 50 MCG TAB PO SCH (05:46)
[2018-12-02] MEDS: PANTOPRAZOLE 40 MG TABLET PO SCH (05:46)
[2018-12-02 05:57] LABS: Anisocytosis Slight; Basophils # (A) 0.1 k/uL (0-0.2); Basophils % (A) 1 %; Eosinophils # (A) 0.4 k/uL (0-0.7); Eosinophils % (A) 6 %; HCT 44.6 % (39.0-53.0); HGB 14.9 gm/dL (13.0-17.5); Lymphocytes # (A) 1.6 k/uL (1.0-4.8); Lymphocytes % (A) 20 %; MCH 31.1 pg (25.0-35.0); MCHC 33.5 g/dL (31.0-37.0); Mean Platelet Volume 6.8; Monocytes # (A) 0.5 k/uL (0-1.0); Monocytes % (A) 7 %; Neutrophils % (A) 65 %; Platelet Count 205 k/uL (150-450); RDW 16.2 % (11.5-15.5); WBC 7.7 k/uL (3.8-10.6)
[2018-12-02 06:04] LABS: Glucose,Whole Blood 75 mg/dL (75-99)
[2018-12-02 06:08] LABS: Potassium 3.7 mmol/L (3.5-5.1)
[2018-12-02] MEDS: INSULIN ASPART (NovoLOG) 100 UNIT/ML VIAL SQ SCH ×2 (06:10→12:07)
[2018-12-02] MEDS ORDERED: ASPIRIN 81 MG PO SCH (09:00)
[2018-12-02] MEDS ORDERED: METOPROLOL SUCCINATE (ER) 25 MG TAB.ER.24H PO SCH (09:00)
[2018-12-02] MEDS: ASCORBIC ACID 500 MG TAB PO SCH (09:48)
[2018-12-02] MEDS: LISINOPRIL 5 MG TAB PO SCH (09:48)
[2018-12-02] MEDS: CHOLECALCIFEROL 1,000 UNIT TAB PO SCH (09:48)
[2018-12-02] MEDS: CLOPIDOGREL 75 MG TAB PO SCH (09:48)
[2018-12-02 10:31] VITALS: PULSE 61
[2018-12-02 11:48] VITALS: BP 163/88; TEMP 97.5
[2018-12-02 12:05] LABS: Glucose,Whole Blood 138 mg/dL (75-99)
--- NOTE | 2018-12-02 14:08 | P.PN ---
Subjective Progress Note Date: 12/02/18 This is a 78 year old gentleman who presented to the hospital with a non-ST elevation VT, underwent successful stenting of the mid LAD. He does have history of hypertension and hyperlipidemia, he is a nonsmoker. Patient was seen and examined this morning, sitting up in his chair at bedside. He feels well, denies any chest pain in his breathing is stable. EKG shows normal sinus rhythm with no changes from post-PCI. Blood pressure 150/70 with a heart rate in the 70s, 97% on room air. White blood cell count 7.0, hemoglobin 15.1, platelet count 206. Sodium 139, potassium 3.9, BUN 19 and creatinine 1.0. We will discontinue the Procardia and start the patient on a beta nydia today. 12/02/2018 A shunt seen and examined this morning, denied any further chest discomfort. Hemodynamically stable. Objective - Vital Signs Vital signs: Vital Signs Temp 97.5 F L 12/02/18 11:46 Pulse 61 12/02/18 11:46 Resp 18 12/02/18 11:46 BP 163/88 12/02/18 11:46 Pulse Ox 98 12/02/18 11:46 Intake & Output 12/01/18 12/02/18 12/02/18 18:59 06:59 18:59 Intake Total 594 450 360 Output Total 400 2500 Balance 194 -2049 360 Weight 81.2 kg 81.8 kg Intake: Intake, IV Titration 450 Amount 0.9% NaCl with KCl 40 Meq 450 /l 1,000 ml @ 75 mls/hr IV .[id number] [facility] Rx#: [id number] Oral 594 360 Output: Urine 400 2500 Other: Voiding Method Toilet Toilet Toilet Urinal Urinal Urinal # Voids 3 4 1 - Exam PHYSICAL EXAMINATION: GENERAL: 78-year-old gentleman in no acute distress at the time of my examination HEENT: Head is atraumatic, normocephalic. Pupils equal, round. Sclera anicteric. Conjunctiva are clear. Mucous membranes of the mouth are moist. Neck is supple. There is no elevated jugular venous pressure. No carotid bruit is heard. HEART EXAMINATION: Heart S1, S2 normal. No murmur or gallop heard. CHEST EXAMINATION: Lungs are clear to auscultation and precussion. No chest wall tenderness is noted on palpation or with deep breathing. ABDOMEN: Soft, nontender. Bowel sounds are heard. No organomegaly noted. EXTREMITIES: 2+ peripheral pulses with no evidence of peripheral edema and no calf tenderness noted. Right groin is soft, no evidence of any hematoma. NEUROLOGIC patient is awake, alert and oriented X3 . - Labs CBC & Chem 7: 12/02/18 05:35 12/02/18 05:35 Labs: Abnormal Lab Results - Last 24 Hours (Table) 12/01/18 12/01/18 12/01/18 Range/Units 16:33 17:17 20:11 RDW (11.5-15.5) % Glucose (74-99) mg/dL POC Glucose (mg/dL) 153 H 150 H 157 H (75-99) mg/dL 12/02/18 12/02/18 12/02/18 Range/Units 05:35 05:35 11:56 RDW 16.2 H (11.5-15.5) % Glucose 71 L (74-99) mg/dL POC Glucose (mg/dL) 138 H (75-99) mg/dL Assessment and Plan Plan: Assessment and plan #1 non-ST elevation VT status post successful stenting of the mid LAD #2 hypertension #3 hyperlipidemia Plan Echocardiogram with Doppler study was performed which revealed a normal left ventricular systolic function. Patient may be discharged home today from our perspective, we'll make a follow-up appointment in the office post discharge. DNP note has been reviewed, I agree with a documented findings and plan of care. Patient was seen and examined.
--- NOTE | 2018-12-02 14:08 | P.DS ---
Providers Date of admission: 11/30/18 14:28 Expected date of discharge: 12/02/18 Attending physician: Omar Lewis Consults: 11/29/18 15:19 Consult Physician Urgent Consulting Provider: Merly Lux Consult Reason/Comments: cp Do you want consulting provider notified?: Yes 11/30/18 11:04 Consult Physician Routine Consulting Provider: [facility] Consult Reason/Comments: Post Interventional patient Do you want consulting provider notified?: Already Contacted Primary care physician: [facility] Course: Final diagnosis Chest pain, possible unstable angina, status post cardiac catheterization, left anterior descending coronary artery stenting Troponin 0.035 Hypokalemia Right hip pain, possible degenerative joint disease Increased calcium Diabetes mellitus type 2 Hypertension Hyperlipidemia History of memory impairment history of prostate disorder History of hernia repair history of dysphagia with barium test showing narrowing of the esophagus Discharge disposition Patient is being discharged in a stable condition with guarded prognosis to home and will follow-up with cardiology in the outpatient setting. Total time taken is 35 minutes. History of present illness This is a 78-year-old male who was recently admitted with chest pain and was being monitored closely. Etiology was following closely. Patient underwent cardiac catheterization with stenting to the LAD during hospitalization. Patient denies any chest pain, palpitations, or shortness of breath at this time. Patient remained afebrile. Patient denies any nausea or vomiting and has been tolerating diet. Per cardiology recommendations patient will follow-up in the outpatient setting in 1-2 weeks. Yesterday patient had some blood clots that were noticed in the urine and was closely monitored. Discussed with the patient and that it was possibly due to having a Wade catheter during cardiac catheterization and now being on dual therapy anticoagulation. Patient denies any new episodes of blood in the urine. Discussed with the patient if this continues to follow-up with urology in the outpatient setting. Patient will continue on a short course of oral antibiotics in the form of Ceftin 500 mg twice daily for the next 3 days. Currently patient's condition is stable with much improvement. Guarded prognosis. On exam vital signs are stable. Blood pressure is 163/88, pulse is 61, respirations are 18, temp is 97.5F, oxygen saturation is 98% on room air. Cardio S1 and S2 are muffled. Respiratory system shows diminished breath sounds at the bases with no rhonchi or crackles noted. Abdomen is soft and non-tender. Nervous system shows no focal deficits. Please refer to medication reconciliation sheet for a list of medications. Patient Condition at Discharge: Stable Plan - Discharge Summary Discharge Rx Participant: No New Discharge Prescriptions: New Aspirin 325 mg PO DAILY 30 Days #30 tab Nitroglycerin Sl Tabs [Nitrostat] 0.4 mg SUBLINGUAL Q5M PRN #30 tab PRN Reason: Chest Pain Clopidogrel [Plavix] 75 mg PO DAILY 30 Days #30 tab Cefuroxime Axetil [Ceftin] 500 mg PO BID 3 Days #6 tab Continue Lisinopril [Zestril] 5 mg PO DAILY INSULIN ASPART (NovoLOG) [NovoLOG (formulary)] 0 unit SQ AC-TID PRN PRN Reason: TO SCALE PER BS Ascorbic Acid [Vitamin C] 500 mg PO BID Lutein 40 mg PO QAM Pravastatin Sodium [Pravachol] 20 mg PO HS Cholecalciferol [Vitamin D3 (25 Mcg = 1000 Iu)] 2,000 unit PO Q48H K-Zyme 1 tab PO TID Thyrotone 500 mg PO BID Omeprazole Magnesium [PriLOSEC OTC] 20 mg PO QAM Levothyroxine Sodium [Synthroid] 50 mcg PO DAILY Insulin Glargine,Hum.rec.anlog [Danielle Solwilner] 14 units SQ HS NIFEdipine [NIFEdipine ER] 30 mg PO HS Discontinued Aspirin 81 mg PO HS Discharge Medication List Ascorbic Acid [Vitamin C] 500 mg PO BID 05/21/14 [History] INSULIN ASPART (NovoLOG) [NovoLOG (formulary)] 0 unit SQ AC-TID PRN 05/21/14 [History] Lisinopril [Zestril] 5 mg PO DAILY 05/21/14 [History] Lutein 40 mg PO QAM 01/27/16 [History] Cholecalciferol [Vitamin D3 (25 Mcg = 1000 Iu)] 2,000 unit PO Q48H 11/29/17 [History] K-Zyme 1 tab PO TID 11/29/17 [History] Pravastatin Sodium [Pravachol] 20 mg PO HS 11/29/17 [History] Omeprazole Magnesium [PriLOSEC OTC] 20 mg PO QAM 03/03/18 [History] Thyrotone 500 mg PO BID 03/03/18 [History] Levothyroxine Sodium [Synthroid] 50 mcg PO DAILY 09/01/18 [History] Insulin Glargine,Hum.rec.anlog [Danielle Mcostar] 14 units SQ HS 11/29/18 [History] NIFEdipine [NIFEdipine ER] 30 mg PO HS 11/29/18 [History] Aspirin 325 mg PO DAILY 30 Days #30 tab 12/01/18 [Rx] Cefuroxime Axetil [Ceftin] 500 mg PO BID 3 Days #6 tab 12/01/18 [Rx] Clopidogrel [Plavix] 75 mg PO DAILY 30 Days #30 tab 12/01/18 [Rx] Nitroglycerin Sl Tabs [Nitrostat] 0.4 mg SUBLINGUAL Q5M PRN #30 tab 12/01/18 [Rx] Follow up Appointment(s)/Referral(s): Ronal Marcos DO [Primary Care Provider] - 12/09/18 11:40 am (With [facility] MIR[facility].) Raudel Mcleod MD [STAFF PHYSICIAN] - 1 Week (Family prefers to follow up with Shani rather than Kristin. -Office will just need to notify both providers and then they will call you with follow up appointment. ) Donato Foster MD [STAFF PHYSICIAN] - 1 Week Patient Instructions/Handouts: Heart Healthy Diet (DC), Hematuria (ED), Coronary Intravascular Stent Placement (DC) Activity/Diet/Wound Care/Special Instructions: 1. Support your puncture site by applying firm, steady pressure whenever you cough, laugh, sneeze or bear down to have a bowel movement (2-day restriction). 2. Watch for any excessive bruising, active bleeding, a firm knot forming under your skin, extreme tenderness and signs of infection (redness, swelling, fever). 3. Shower daily, do not soak puncture in a tub bath, jacuzzi, pool, oseguera etc. for 1 week. This is to prevent risk of infection. 4. Drink plenty of fluids the day of and day after your procedure to flush contrast dye out of your kidneys. 5. Take all medications as directed. Never stop any new medication without your physicians OK. 6. No driving for 2 days after procedure. 7. 10- pound weight lifting restriction for 1 week. 8. Low sodium/low fat diet. 9. Activity limited until follow up appointment with your remotely operated vehicle. In case of any problems, please call [facility] [place] @ [phone]. Activity limited until follow up Continue current heart healthy diet Follow up with primary care provider and cardiology as scheduled Discharge Disposition: HOME SELF-CARE
[2018-12-02 14:28] LABS: Hemoglobin A1C 8.1 % (4.0-6.0)
== END 2018-12-02 15:02 | disposition home or self-care (01) | DRG 247 ==
LOC: EC 13:12 → 1SOBS 15:19 → 3SCARD 11-30 11:00 → OBSVTOIN 11-30 14:28
PROVIDERS: ADMIT Internal Medicine; ATTEND Internal Medicine
PROC: 027034Z Dilation of Coronary Artery, One Artery with Drug-eluting Intraluminal Device, Percutaneous Approach (ICD-10-PCS; principal; 2018-11-30 09:33)
PROC: 4A023N7 Measurement of Cardiac Sampling and Pressure, Left Heart, Percutaneous Approach (ICD-10-PCS; 2018-11-30 09:33)
PROC: B2111ZZ Fluoroscopy of Multiple Coronary Arteries using Low Osmolar Contrast (ICD-10-PCS; 2018-11-30 09:33)
DX: I21.4 Non-ST elevation (NSTEMI) myocardial infarction (principal); I10 Essential (primary) hypertension; I25.110 Atherosclerotic heart disease of native coronary artery with unstable angina pectoris; E87.6 Hypokalemia; E78.5 Hyperlipidemia, unspecified; N42.9 Disorder of prostate, unspecified; E11.9 Type 2 diabetes mellitus without complications; R31.9 Hematuria, unspecified; T45.515A Adverse effect of anticoagulants, initial encounter; Z79.4 Long term (current) use of insulin; Z79.82 Long term (current) use of aspirin; Z79.890 Hormone replacement therapy; Z79.899 Other long term (current) drug therapy; Z88.2 Allergy status to sulfonamides; Z98.42 Cataract extraction status, left eye; Z98.41 Cataract extraction status, right eye; Z98.890 Other specified postprocedural states
CPT/HCPCS: 36415; 71046; 80048; 80051; 80053; 80061; 81001; 82550; 83036; 83735; 84484; 85025; 85610; 85730; 87086; 93005; 93306; 93458; 99285; C1874

== ENCOUNTER 2018-12-04 13:12 | Emergency (ER) | payer MEDICARE, OTHER ==
[2018-12-04 13:23] VITALS: TEMP 97.6
[2018-12-04] MEDS ORDERED: SODIUM CHLORIDE 0.9% 1,000 ML IV STA ×2 (14:11)
[2018-12-04 14:34] LABS: Basophils # (A) 0.1 k/uL (0-0.2); Basophils % (A) 1 %; Eosinophils # (A) 0.2 k/uL (0-0.7); Eosinophils % (A) 2 %; HCT 45.7 % (39.0-53.0); HGB 15.3 gm/dL (13.0-17.5); Lymphocytes % (A) 12 %; MCH 30.6 pg (25.0-35.0); MCHC 33.6 g/dL (31.0-37.0); MCV 91.2 fL (80.0-100.0); Mean Platelet Volume 6.3; Monocytes # (A) 0.5 k/uL (0-1.0); Monocytes % (A) 6 %; Neutrophils # (A) 6.4 k/uL (1.3-7.7); Neutrophils % (A) 78 %; Platelet Count 220 k/uL (150-450); RBC 5.01 m/uL (4.30-5.90); RDW 14.5 % (11.5-15.5); WBC 8.2 k/uL (3.8-10.6)
[2018-12-04 14:44] LABS: Partial Thromboplastin Time 23.7 sec (22.0-30.0); Prothrombin Time 10.4 sec (9.0-12.0)
[2018-12-04 14:47] LABS: Albumin 3.9 g/dL (3.5-5.0); Calcium 9.2 mg/dL (8.4-10.2); Potassium 3.9 mmol/L (3.5-5.1); Total Bilirubin 0.7 mg/dL (0.2-1.3)
--- NOTE | 2018-12-04 14:47 | XR ---
EXAMINATION TYPE: XR chest 2V DATE OF EXAM: 12/04/2018 COMPARISON: 11/29/2018 HISTORY: Shortness of breath TECHNIQUE: Frontal and lateral views of the chest are obtained. FINDINGS: Scattered senescent parenchymal changes noted. Hyperinflation compatible with COPD. No evidence for infiltrate. No evidence for atelectasis. Heart size is stable. Mediastinal structures are stable and grossly unremarkable. No evidence for hilar prominence. Degenerative changes dorsal spine. IMPRESSION: 1. No evidence for acute pulmonary disease.
[2018-12-04 15:31] VITALS: RESP 14
--- NOTE | 2018-12-04 15:31 | ED ---
Chest Pain HPI - General Source: patient, family, RN notes reviewed, old records reviewed Mode of arrival: ambulatory Limitations: no limitations <Hortensia Abarca - Last Filed: 12/04/18 16:28> <Александр Aiken - Last Filed: 12/04/18 16:33> - General Chief Complaint: Chest Pain Stated Complaint: Chest pressure Time Seen by Provider: 12/04/18 14:10 - History of Present Illness Initial Comments: 78-year-old male presents emergency department today with an episode of chest pressure, he started to feel somewhat lightheaded and felt that he needed to sit down. Patient reports he is status post 2 days after a stent placed in his LAD. Patient reports that after he rested seen the pain seemed to resolve and denies any pain at this time. After Patient had the stent is placed on Plavix. This was done by his remote mortgage underwriter Dr. Huston and also Dr. Gauthier. Patient has had no numbness or tingling in his arms, denies any nausea. Has a history of diabetes and hypertension. Patient states he has no shortness of breath at this time. He is symptom a symptomatically. He is just concerned with the episode of chest heaviness and lightheaded feeling that he should come for reevaluation. (Hortensia Abarca) - Related Data Home Medications Medication Instructions Recorded Confirmed Ascorbic Acid [Vitamin C] 500 mg PO BID 05/21/14 12/04/18 INSULIN ASPART (NovoLOG) [NovoLOG See Protocol SQ AC-TID PRN 05/21/14 12/04/18 (formulary)] Lisinopril [Zestril] 5 mg PO DAILY 05/21/14 12/04/18 Lutein 40 mg PO QAM 01/27/16 12/04/18 Cholecalciferol [Vitamin D3 (25 2,000 unit PO Q48H 11/29/17 12/04/18 Mcg = 1000 Iu)] K-Zyme 1 tab PO TID 11/29/17 12/04/18 Pravastatin Sodium [Pravachol] 20 mg PO HS 11/29/17 12/04/18 Omeprazole Magnesium [PriLOSEC OTC] 20 mg PO QAM 03/03/18 12/04/18 Thyrotone 500 mg PO BID 03/03/18 12/04/18 Levothyroxine Sodium [Synthroid] 50 mcg PO DAILY 09/01/18 12/04/18 Insulin Glargine,Hum.rec.anlog 14 units SQ HS 11/29/18 12/04/18 [Toariannacarolynabraham Jesusitaostmaria guadalupe] NIFEdipine [NIFEdipine ER] 30 mg PO HS 11/29/18 12/04/18 Previous Rx's Medication Instructions Recorded Aspirin 325 mg PO DAILY 30 Days #30 tab 12/01/18 Cefuroxime Axetil [Ceftin] 500 mg PO BID 3 Days #6 tab 12/01/18 Clopidogrel [Plavix] 75 mg PO DAILY 30 Days #30 tab 12/01/18 Nitroglycerin Sl Tabs [Nitrostat] 0.4 mg SUBLINGUAL Q5M PRN #30 tab 12/01/18 Allergies Allergy/AdvReac Type Severity Reaction Status Date / Time Sulfa (Sulfonamide Allergy Rash/Hives Verified 12/04/18 13:34 Antibiotics) sulfamethoxazole Allergy Rash/Hives Verified 12/04/18 13:34 [From ] trimethoprim [From ] Allergy Rash/Hives Verified 12/04/18 13:34 Review of Systems ROS Other: All systems not noted in ROS Statement are negative. <Hortensia Abarca - Last Filed: 12/04/18 16:28> ROS Other: All systems not noted in ROS Statement are negative. <Александр Aiken - Last Filed: 12/04/18 16:33> ROS Statement: Those systems with pertinent positive or pertinent negative responses have been documented in the HPI. 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 Cannot rule out anterior infarct. Ventricular rate of 66 bpm. Was 176 ms. QS duration is 106 ms. QT QTc is 412/431 ms. <Hortensia Abarca - Last Filed: 12/04/18 16:28> Past Medical History Past Medical History: Cancer, Diabetes Mellitus, Hyperlipidemia, Hypertension, Memory Impairment, Prostate Disorder Additional Past Medical History / Comment(s): C/O "CHOKING WITH FOOD, GETS GAS BUBBLE/PAIN, BARIUM TEST SHOWED NARROWING" ESOPHAGUS. MINOR CA PROSTATE, BEING MONITORED. History of Any Multi-Drug Resistant Organisms: None Reported Past Surgical History: Hernia Repair Additional Past Surgical History / Comment(s): Bilat Cataract Surgery. ING HERNIA REPAIR. COLONOSCOPY Past Anesthesia/Blood Transfusion Reactions: Family History of Problems w/ Anesthesia Additional Past Anesthesia/Blood Transfusion Reaction / Comment(s): BROTHER: POST-OP DELIRIUM Past Psychological History: No Psychological Hx Reported Smoking Status: Never smoker Past Alcohol Use History: None Reported Past Drug Use History: None Reported - Past Family History Mother Family Medical History: No Reported History Father Family Medical History: No Reported History Additional Family Medical History / Comment(s): no family history diagnosis, pt states everyone is pretty healthy <Hortensia Abarca - Last Filed: 12/04/18 16:28> General Exam Limitations: no limitations General appearance: alert, in no apparent distress Head exam: Present: atraumatic, normocephalic, normal inspection Eye exam: Present: normal appearance, PERRL, EOMI. Absent: scleral icterus, conjunctival injection, periorbital swelling ENT exam: Present: normal exam, mucous membranes moist Neck exam: Present: normal inspection. Absent: tenderness, meningismus, lymphadenopathy Respiratory exam: Present: normal lung sounds bilaterally. Absent: respiratory distress, wheezes, rales, rhonchi, stridor Cardiovascular Exam: Present: regular rate, normal rhythm, normal heart sounds. Absent: systolic murmur, diastolic murmur, rubs, gallop, clicks GI/Abdominal exam: Present: soft, normal bowel sounds. Absent: distended, tenderness, guarding, rebound, rigid Extremities exam: Present: normal inspection, full ROM, normal capillary refill. Absent: tenderness, pedal edema, joint swelling, calf tenderness Back exam: Present: normal inspection Neurological exam: Present: alert, oriented X3, CN II-XII intact Psychiatric exam: Present: normal affect, normal mood Skin exam: Present: warm, dry, intact, normal color. Absent: rash <Hortensia Abarca - Last Filed: 12/04/18 16:28> Course <Александр Aiken - Last Filed: 12/04/18 16:33> Vital Signs 12/04/18 12/04/18 12/04/18 13:20 14:00 14:30 Temperature 97.6 F Pulse Rate 67 64 60 Respiratory 18 14 14 Rate Blood Pressure 151/84 160/97 138/84 O2 Sat by Pulse 97 98 98 Oximetry 12/04/18 12/04/18 15:00 15:30 Temperature Pulse Rate 58 L 63 Respiratory 14 14 Rate Blood Pressure 146/90 149/86 O2 Sat by Pulse 97 98 Oximetry - Reevaluation(s) Reevaluation #1: 12/04/18 16:32 PA supervision: I proceeded [id number] evaluation patient did discuss findings with him and his family. Patient did present with a brief bout of chest pain. He did have a cardiac cath and stent placement 2 days ago. He is been asymptomatic since he initial incident his troponin was noted be elevated this is believed to be secondary to the stent placement procedure. I did discuss the case with Dr. Mcleod patient is in satisfactory condition for discharge no further symptoms he is able amulet without difficulty he will follow-up with cardiology as planned and return if any problems he has family are in agreement with this. (Александр Aiken) Disposition Is patient prescribed a controlled substance at d/c from ED?: No Time of Disposition: 16:29 <Hortensia Abarca - Last Filed: 12/04/18 16:28> <Александр Aiken - Last Filed: 12/04/18 16:33> Clinical Impression: Chest discomfort, Light-headed feeling Disposition: HOME SELF-CARE Condition: Good Instructions (If sedation given, give patient instructions): Chest Pain (ED) Additional Instructions: Follow-up with primary care doctor. Patient should follow-up with cardiology as well. Return to the emergency department if any alarming signs or symptoms occur. Patient should rest, remain hydrated. If there is any persistent chest pains are recurrent chest pain, do not hesitate to come back to the ER. Referrals: Ronal Marcos DO [Primary Care Provider] - 1-2 days
[2018-12-04 16:49] VITALS: BP 157/102; PULSE 69
== END 2018-12-04 17:08 | disposition home or self-care (01) ==
LOC: EC 13:12
DX: R07.89 Other chest pain (principal); R42 Dizziness and giddiness; E11.9 Type 2 diabetes mellitus without complications; E78.5 Hyperlipidemia, unspecified; I10 Essential (primary) hypertension; Z85.46 Personal history of malignant neoplasm of prostate; Z95.5 Presence of coronary angioplasty implant and graft; Z79.4 Long term (current) use of insulin; Z79.890 Hormone replacement therapy; Z79.899 Other long term (current) drug therapy; Z88.2 Allergy status to sulfonamides
CPT/HCPCS: 36415; 71046; 80053; 83735; 83880; 84484; 85025; 85610; 85730; 93005; 96360; 99285

== ENCOUNTER 2023-07-15 12:13 | Emergency (ER) | payer MEDICARE, OTHER ==
[2023-07-15] MEDS: SODIUM CHLORIDE 0.9% 1,000 ML IV STA ×3 (12:53→14:01)
[2023-07-15 12:54] LABS: Basophils # (A) 0.1 k/uL (0-0.2); Basophils % (A) 1 %; Eosinophils # (A) 0.3 k/uL (0-0.7); Eosinophils % (A) 3 %; HCT 45.4 % (39.0-53.0); HGB 14.4 gm/dL (13.0-17.5); Lymphocytes # (A) 1.4 k/uL (1.0-4.8); Lymphocytes % (A) 13 %; MCH 29.8 pg (25.0-35.0); MCHC 31.8 g/dL (31.0-37.0); MCV 93.8 fL (80.0-100.0); Mean Platelet Volume 7.6; Monocytes # (A) 0.8 k/uL (0-1.0); Monocytes % (A) 7 %; Neutrophils # (A) 7.6 k/uL (1.3-7.7); Neutrophils % (A) 74 %; Platelet Count 178 k/uL (150-450); RBC 4.84 m/uL (4.30-5.90); RDW 13.9 % (11.5-15.5); WBC 10.2 k/uL (3.8-10.6)
[2023-07-15 13:07] LABS: ALT 29 U/L (4-49); AST 37 U/L (17-59); African American GFR (CKD) 64 (>60 ml/min/1.73 sqM); Albumin 3.3 g/dL (3.5-5.0); Alkaline Phosphatase 108 U/L (38-126); Anion Gap 8 mmol/L; Blood Urea Nitrogen 34 mg/dL (9-20); Calcium 8.8 mg/dL (8.4-10.2); Carbon Dioxide 27 mmol/L (22-30); Chloride 107 mmol/L (98-107); Glucose 176 mg/dL (74-99); Magnesium 1.8 mg/dL (1.6-2.3); Non-African American GFR(CKD) 55 (>60 ml/min/1.73 sqM); Potassium 3.5 mmol/L (3.5-5.1); Sodium 142 mmol/L (137-145); Total Bilirubin 0.9 mg/dL (0.2-1.3); Total Protein 6.3 g/dL (6.3-8.2)
[2023-07-15 13:11] LABS: Partial Thromboplastin Time 21.6 sec (22.0-30.0); Prothrombin Time 11.4 sec (10.0-12.5)
[2023-07-15 13:18] LABS: Appearance,Urine Clear (Clear); Bilirubin,Urine Negative (Negative); Blood,Urine Negative (Negative); Color,Urine Yellow; Glucose,Urine (UA) Negative (Negative); Hyaline Casts,Urine 1 /lpf (0-2); Ketones,Urine Negative (Negative); Leukocyte Esterase,Urine Moderate (Negative); Mucus,Urine Occasional /hpf; Nitrite,Urine Negative (Negative); Protein,Urine Trace (Negative); RBC,Urine 3 /hpf (0-5); Squamous Epithelial Cell,Urine 1 /hpf (0-4); Urobilinogen,Urine <2.0 mg/dL (<2.0); WBC,Urine 6 /hpf (0-5)
--- NOTE | 2023-07-15 13:40 | ED ---
General Adult HPI - General Chief complaint: Weakness Stated complaint: Weakness Time Seen by Provider: 07/15/23 12:15 Source: patient, EMS, RN notes reviewed, old records reviewed Mode of arrival: EMS Limitations: altered mental status - History of Present Illness Initial comments: Patient is an 82-year-old male who presents emergency department for evaluation for weakness. Has a history of cancer, diabetes, dementia, hypertension. Has had progressive weakness for the last few weeks. Does have a history of cardiac stent. Denies chest pain or shortness of breath. Denies abdominal pain. Has been having a productive cough. Patient has increased falls over the last few weeks as well. No obvious injuries other than left shoulder pain. Patient was more weak lately and fell backwards into the bed today which is why presents for further evaluation. All symptoms of weakness have been ongoing for at least 2 to 3 weeks. No obvious acute changes today. No obvious loss of consciousness per patient or family. They are uncertain if he had a stent. Patient is not on blood thinners. Has had decreased PO intake over the last few weeks as well with decreased energy. - Related Data Home Medications Medication Instructions Recorded Confirmed INSULIN ASPART (NovoLOG) [NovoLOG 2 - 6 unit SQ AC-TID 05/21/14 07/15/23 (formulary)] lisinopriL [Zestril] 5 mg PO DAILY 05/21/14 07/15/23 Insulin Glargine,Hum.rec.anlog 15 units SQ HS 11/29/18 07/15/23 [Danielle Knowles] Aspirin EC [Ecotrin Low Dose] 81 mg PO DAILY 06/15/20 07/15/23 Lutein 20 mg PO BID 06/15/20 07/15/23 Metoprolol Succinate (ER) [Toprol 25 mg PO HS 06/15/20 07/15/23 XL] Omeprazole 20 mg PO HS 06/15/20 07/15/23 Ascorbic Acid [Vitamin C] 500 mg PO DAILY 07/15/23 07/15/23 Cholecalciferol (Vitamin D3) 50 unit PO DAILY 07/15/23 07/15/23 [Vitamin D3 (50 Mcg = 2000 Iu) Chew Tab] Cinnamon Bark [Cinnamon] 1,000 mg PO DAILY 07/15/23 07/15/23 Donepezil [Aricept] 10 mg PO HS 07/15/23 07/15/23 LORazepam [Ativan] 0.5 mg PO DAILY PRN 07/15/23 07/15/23 Levothyroxine Sodium [Euthyrox] 75 mcg PO DAILY 07/15/23 07/15/23 NIFEdipine XL [Procardia Xl] 30 mg PO HS 07/15/23 07/15/23 Rosuvastatin [Crestor] 20 mg PO HS 07/15/23 07/15/23 Zinc Gluconate [Zinc] 50 mg PO DAILY 07/15/23 07/15/23 Allergies Allergy/AdvReac Type Severity Reaction Status Date / Time Sulfa (Sulfonamide Allergy Rash/Hives Verified 07/15/23 13:29 Antibiotics) sulfamethoxazole Allergy Rash/Hives Verified 07/15/23 13:29 [From ] trimethoprim [From ] Allergy Rash/Hives Verified 07/15/23 13:29 Review of Systems ROS Statement: Those systems with pertinent positive or pertinent negative responses have been documented in the HPI. Review of Systems: CONST: Denies fever EYES: Denies blurry vision ENT: Denies nasal congestion C/V: Denies Chest pain RESP: Denies shortness of breath GI: Denies abdominal pain : Denies dysuria SKIN: Denies rash. MSK: Endorses left shoulder pain. NEURO: Denies headache ROS Other: All systems not noted in ROS Statement are negative. Past Medical History Past Medical History: Cancer, Dementia, Diabetes Mellitus, Hyperlipidemia, Hypertension, Memory Impairment, Prostate Disorder Additional Past Medical History / Comment(s): C/O "CHOKING WITH FOOD, GETS GAS BUBBLE/PAIN, BARIUM TEST SHOWED NARROWING" ESOPHAGUS. MINOR CA PROSTATE, BEING MONITORED. History of Any Multi-Drug Resistant Organisms: None Reported Past Surgical History: Heart Catheterization With Stent, Hernia Repair Additional Past Surgical History / Comment(s): Bilat Cataract Surgery. ING HERNIA REPAIR. COLONOSCOPY, lt eye-detached retina Past Anesthesia/Blood Transfusion Reactions: Family History of Problems w/ Anesthesia Additional Past Anesthesia/Blood Transfusion Reaction / Comment(s): BROTHER: POST-OP DELIRIUM Date of Last Stent Placement:: Unknown Past Psychological History: No Psychological Hx Reported Smoking Status: Never smoker Past Alcohol Use History: None Reported Past Drug Use History: None Reported - Past Family History Mother Family Medical History: No Reported History Father Family Medical History: No Reported History Additional Family Medical History / Comment(s): no family history diagnosis, pt states everyone is pretty healthy General Exam - General Exam Comments Initial Comments: General: Appears in no acute distress. HEAD: Normal with no signs of head trauma. EYES: PERRLA, EOMI, conjunctiva normal, no discharge. Pupils are 3 mm and equal bilaterally. ENT: Hearing grossly intact, normal oropharynx. RESPIRATORY: Clear breath sounds bilaterally. No wheezes, rales, or rhonchi. C/V: Regular rate and rhythm. S1 and S2 auscultated, no edema, peripheral pulses 2+ and intact throughout ABD: Abd is soft, nontender, nondistended EXT: Decreased range of motion left shoulder is from a fall few weeks ago. Tenderness palpation of the left shoulder. Neurovascular intact otherwise. SKIN: No rashes or lesions observed on exposed skin. NEURO: Alert and oriented at baseline. No obvious focal deficits. Moving all 4 extremities. Range of motion limited in the left upper extremity secondary to pain in the left shoulder from a fall a few weeks ago. Limitations: altered mental status Course Vital Signs 07/15/23 07/15/23 07/15/23 12:16 13:01 14:49 Temperature 97.8 F Pulse Rate 65 62 63 Respiratory 18 18 18 Rate Blood Pressure 140/95 145/79 145/89 O2 Sat by Pulse 99 100 95 Oximetry 07/15/23 07/15/23 07/15/23 15:15 17:21 17:42 Temperature 97.6 F Pulse Rate 59 L 67 60 Respiratory 16 18 18 Rate Blood Pressure 137/79 127/101 130/98 O2 Sat by Pulse 95 98 97 Oximetry Medical Decision Making - Medical Decision Making Was pt. sent in by a medical professional or institution (, PA, SENIOR JAVA WEB DEVELOPER, urgent care, hospital, or jail...) When possible be specific @ -No Did you speak to anyone other than the patient for history (EMS, parent, family, police, friend...)? What history was obtained from this source @ -Spoke with patient's who assist with patient's recent past medical history. Did you review nursing and triage notes (agree or disagree)? Why? @ -I reviewed and agree with nursing and triage notes Were old charts reviewed (outside hosp., previous admission, EMS record, old EKG, old radiological studies, urgent care reports/EKG's, jail records)? Report findings @ -Old charts reviewed including EKGs. Differential Diagnosis (chest pain, altered mental status, abdominal pain women, abdominal pain men, vaginal bleeding, weakness, fever, dyspnea, syncope, headache, dizziness, GI bleed, back pain, seizure, CVA, palpatations, mental health, musculoskeletal)? @ -Differential Weakness: Hypoglycemia, shock, sepsis, hyponatremia, anemia, infection, PA, ETOH, adverse medicine reaction, overdose, stroke, this is not meant to be an all-inclusive list. EKG interpreted by me (3pts min.). @ -As above X-rays interpreted by me (1pt min.). @ -Chest x-ray reveals no obvious acute cardiopulmonary process. Left shoulder x-ray consistent with left rotator cuff injury. No obvious acute fracture. CT interpreted by me (1pt min.). @ -CT brain shows findings consistent with left brainstem mass versus possible new hemorrhage. Radiology uncertain between the 2. Recommend MRI for follow- up. Also possible early hydrocephalus. U/S interpreted by me (1pt. min.). @ -None done What testing was considered but not performed or refused? (CT, X-rays, U/S, labs)? Why? @ -None What meds were considered but not given or refused? Why? @ -Considered heparin aspirin however patient has possible bleeding brainstem mass. Therefore this will be held at this time until further evaluation of the patient. Did you discuss the management of the patient with other professionals (professionals i.e. Dr., PA, SENIOR JAVA WEB DEVELOPER, lab, RT, psych nurse, secondary social studies teacher, sports equipment racker, teacher, loans officer, returned case inspector)? Give summary @ -Discussed with Dr. Acevedo who updated me on the results of the CT scan. Discussed with neurology Dr. Hardin as well as admitting physician Dr. Tucker who are in agreement with the plan for transfer. Discussed with accepting physician, neurosurgeon Dr. Peter at [facility] who accepted the patient. Was smoking cessation discussed for >3mins.? @ -No Was critical care preformed (if so, how long)? @ -Yes, 35 minutes Were there social determinants of health that impacted care today? How? (Homelessness, low income, unemployed, alcoholism, drug addiction, transportatio n, low edu. Level, literacy, decrease access to med. care, care home, rehab)? @ -No Was there de-escalation of care discussed even if they declined (Discuss DNR or withdrawal of care, Hospice)? DNR status @ -No What co-morbidities impacted this encounter? (DM, HTN, Smoking, COPD, CAD, Cancer, CVA, ARF, Chemo, Hep., AIDS, mental health diagnosis, sleep apnea, morbid obesity)? @ -None Was patient admitted / discharged? Hospital course, mention meds given and route, prescriptions, significant lab abnormalities, going to OR and other pertinent info. @ -Based on patient's presentation and physical exam, presents with weakness for multiple weeks. We will obtain generalized workup. Patient in agreement this plan. No obvious symptoms other than musculoskeletal left shoulder pain that occurred after falling a few weeks ago. Vital signs currently within acceptable limits. EKG shows no obvious acute process. Similar findings with prior EKG from 2020. Patient's labs were remarkable for lactic acidosis of 3.6 as well as an elevated troponin of 0.281. Updated the patient and he reiterates he has no chest pain. Imaging returned remarkable for left rotator cuff injury of the shoulder. CT of the brain shows findings consistent with a left brainstem mass versus possible new hemorrhage with it as well. Radiology conveyed this to me and is uncertain between the 2. They recommended follow-up MRI. I spoke with radiology, uncertain if it is a bleeding mass or not. I did contact her neurologist Dr. Hardin as well as admitting physician Dr. Tucker and both in agreement with transfer for neurosurgery to be available if needed. Patient does have an NSTEMI, likely secondary to other causes his EKG appears within acceptable limits as well as no active chest pain. However we cannot st art heparin or aspirin as concern for possible bleeding brainstem mass.Patient is not on blood thinners. Therefore no reversal indicated. I spoke with patient's and patient. Patient is a full code and they were in agreement with plan for transfer. We discussed that patient should be given aspirin and heparin however over concern for possible bleeding mass this will be held at this time until further evaluation. They expressed understanding. Undiagnosed new problem with uncertain prognosis? @ -No Drug Therapy requiring intensive monitoring for toxicity (Heparin, Nitro, Insulin, Cardizem)? @ -No Were any procedures done? @ -No Diagnosis/symptom? @ -NSTEMI, weakness, dehydration, Possible bleeding brainstem mass Acute, or Chronic, or Acute on Chronic? @ -Acute Uncomplicated (without systemic symptoms) or Complicated (systemic symptoms)? @ -Complicated Side effects of treatment? @ -None Exacerbation, Progression, or Severe Exacerbation] @ -No Poses a threat to life or bodily function? @ -Yes - Lab Data Result diagrams: 07/15/23 12:40 07/15/23 12:40 Lab Results 07/15/23 07/15/23 07/15/23 Range/Units 12:40 12:40 12:40 WBC 10.2 (3.8-10.6) k/uL RBC 4.84 (4.30-5.90) m/uL Hgb 14.4 (13.0-17.5) gm/dL Hct 45.4 (39.0-53.0) % MCV 93.8 (80.0-100.0) fL MCH 29.8 (25.0-35.0) pg MCHC 31.8 (31.0-37.0) g/dL RDW 13.9 (11.5-15.5) % Plt Count 178 (150-450) k/uL MPV 7.6 Neutrophils % 74 % Lymphocytes % 13 % Monocytes % 7 % Eosinophils % 3 % Basophils % 1 % Neutrophils # 7.6 (1.3-7.7) k/uL Lymphocytes # 1.4 (1.0-4.8) k/uL Monocytes # 0.8 (0-1.0) k/uL Eosinophils # 0.3 (0-0.7) k/uL Basophils # 0.1 (0-0.2) k/uL PT 11.4 (10.0-12.5) sec INR 1.0 (<1.2) APTT 21.6 L (22.0-30.0) sec Sodium 142 (137-145) mmol/L Potassium 3.5 (3.5-5.1) mmol/L Chloride 107 (98-107) mmol/L Carbon Dioxide 27 (22-30) mmol/L Anion Gap 8 mmol/L BUN 34 H (9-20) mg/dL Creatinine 1.24 (0.66-1.25) mg/dL Est GFR (CKD-EPI)AfAm 64 (>60 ml/min/1.73 sqM) Est GFR (CKD-EPI)NonAf 55 (>60 ml/min/1.73 sqM) Glucose 176 H (74-99) mg/dL Lactic Ac Sepsis Rflx Plasma Lactic Acid Luke (0.7-2.0) mmol/L Calcium 8.8 (8.4-10.2) mg/dL Magnesium 1.8 (1.6-2.3) mg/dL Total Bilirubin 0.9 (0.2-1.3) mg/dL AST 37 (17-59) U/L ALT 29 (4-49) U/L Alkaline Phosphatase 108 (38-126) U/L Troponin I (0.000-0.034) ng/mL Total Protein 6.3 (6.3-8.2) g/dL Albumin 3.3 L (3.5-5.0) g/dL Urine Color Urine Appearance (Clear) Urine pH (5.0-8.0) Ur Specific [place] (1.001-1.035) Urine Protein (Negative) Urine Glucose (UA) (Negative) Urine Ketones (Negative) Urine Blood (Negative) Urine Nitrite (Negative) Urine Bilirubin (Negative) Urine Urobilinogen (<2.0) mg/dL Ur Leukocyte Esterase (Negative) Urine RBC (0-5) /hpf Urine WBC (0-5) /hpf Ur Squamous Epith Cells (0-4) /hpf Hyaline Casts (0-2) /lpf Urine Mucus (None) /hpf Influenza Type A (PCR) (Not Detectd) Influenza Type B (PCR) (Not Detectd) RSV (PCR) (Not Detectd) SARS-CoV-2 (PCR) (Not Detectd) 07/15/23 07/15/23 07/15/23 Range/Units 12:40 12:40 12:40 WBC (3.8-10.6) k/uL RBC (4.30-5.90) m/uL Hgb (13.0-17.5) gm/dL Hct (39.0-53.0) % MCV (80.0-100.0) fL MCH (25.0-35.0) pg MCHC (31.0-37.0) g/dL RDW (11.5-15.5) % Plt Count (150-450) k/uL MPV Neutrophils % % Lymphocytes % % Monocytes % % Eosinophils % % Basophils % % Neutrophils # (1.3-7.7) k/uL Lymphocytes # (1.0-4.8) k/uL Monocytes # (0-1.0) k/uL Eosinophils # (0-0.7) k/uL Basophils # (0-0.2) k/uL PT (10.0-12.5) sec INR (<1.2) APTT (22.0-30.0) sec Sodium (137-145) mmol/L Potassium (3.5-5.1) mmol/L Chloride (98-107) mmol/L Carbon Dioxide (22-30) mmol/L Anion Gap mmol/L BUN (9-20) mg/dL Creatinine (0.66-1.25) mg/dL Est GFR (CKD-EPI)AfAm (>60 ml/min/1.73 sqM) Est GFR (CKD-EPI)NonAf (>60 ml/min/1.73 sqM) Glucose (74-99) mg/dL Lactic Ac Sepsis Rflx Plasma Lactic Acid Luke 3.6 H* (0.7-2.0) mmol/L Calcium (8.4-10.2) mg/dL Magnesium (1.6-2.3) mg/dL Total Bilirubin (0.2-1.3) mg/dL AST (17-59) U/L ALT (4-49) U/L Alkaline Phosphatase (38-126) U/L Troponin I 0.281 H* (0.000-0.034) ng/mL Total Protein (6.3-8.2) g/dL Albumin (3.5-5.0) g/dL Urine Color Yellow Urine Appearance Clear (Clear) Urine pH 6.0 (5.0-8.0) Ur Specific [place] 1.020 (1.001-1.035) Urine Protein Trace H (Negative) Urine Glucose (UA) Negative (Negative) Urine Ketones Negative (Negative) Urine Blood Negative (Negative) Urine Nitrite Negative (Negative) Urine Bilirubin Negative (Negative) Urine Urobilinogen <2.0 (<2.0) mg/dL Ur Leukocyte Esterase Moderate H (Negative) Urine RBC 3 (0-5) /hpf Urine WBC 6 H (0-5) /hpf Ur Squamous Epith Cells 1 (0-4) /hpf Hyaline Casts 1 (0-2) /lpf Urine Mucus Occasional H (None) /hpf Influenza Type A (PCR) (Not Detectd) Influenza Type B (PCR) (Not Detectd) RSV (PCR) (Not Detectd) SARS-CoV-2 (PCR) (Not Detectd) 07/15/23 07/15/23 07/15/23 Range/Units 12:40 13:10 15:16 WBC (3.8-10.6) k/uL RBC (4.30-5.90) m/uL Hgb (13.0-17.5) gm/dL Hct (39.0-53.0) % MCV (80.0-100.0) fL MCH (25.0-35.0) pg MCHC (31.0-37.0) g/dL RDW (11.5-15.5) % Plt Count (150-450) k/uL MPV Neutrophils % % Lymphocytes % % Monocytes % % Eosinophils % % Basophils % % Neutrophils # (1.3-7.7) k/uL Lymphocytes # (1.0-4.8) k/uL Monocytes # (0-1.0) k/uL Eosinophils # (0-0.7) k/uL Basophils # (0-0.2) k/uL PT (10.0-12.5) sec INR (<1.2) APTT (22.0-30.0) sec Sodium (137-145) mmol/L Potassium (3.5-5.1) mmol/L Chloride (98-107) mmol/L Carbon Dioxide (22-30) mmol/L Anion Gap mmol/L BUN (9-20) mg/dL Creatinine (0.66-1.25) mg/dL Est GFR (CKD-EPI)AfAm (>60 ml/min/1.73 sqM) Est GFR (CKD-EPI)NonAf (>60 ml/min/1.73 sqM) Glucose (74-99) mg/dL Lactic Ac Sepsis Rflx Y Plasma Lactic Acid Luke 2.3 H* (0.7-2.0) mmol/L Calcium (8.4-10.2) mg/dL Magnesium (1.6-2.3) mg/dL Total Bilirubin (0.2-1.3) mg/dL AST (17-59) U/L ALT (4-49) U/L Alkaline Phosphatase (38-126) U/L Troponin I (0.000-0.034) ng/mL Total Protein (6.3-8.2) g/dL Albumin (3.5-5.0) g/dL Urine Color Urine Appearance (Clear) Urine pH (5.0-8.0) Ur Specific [place] (1.001-1.035) Urine Protein (Negative) Urine Glucose (UA) (Negative) Urine Ketones (Negative) Urine Blood (Negative) Urine Nitrite (Negative) Urine Bilirubin (Negative) Urine Urobilinogen (<2.0) mg/dL Ur Leukocyte Esterase (Negative) Urine RBC (0-5) /hpf Urine WBC (0-5) /hpf Ur Squamous Epith Cells (0-4) /hpf Hyaline Casts (0-2) /lpf Urine Mucus (None) /hpf Influenza Type A (PCR) Not Detected (Not Detectd) Influenza Type B (PCR) Not Detected (Not Detectd) RSV (PCR) Not Detected (Not Detectd) SARS-CoV-2 (PCR) Not Detected (Not Detectd) 07/15/23 Range/Units 15:43 WBC (3.8-10.6) k/uL RBC (4.30-5.90) m/uL Hgb (13.0-17.5) gm/dL Hct (39.0-53.0) % MCV (80.0-100.0) fL MCH (25.0-35.0) pg MCHC (31.0-37.0) g/dL RDW (11.5-15.5) % Plt Count (150-450) k/uL MPV Neutrophils % % Lymphocytes % % Monocytes % % Eosinophils % % Basophils % % Neutrophils # (1.3-7.7) k/uL Lymphocytes # (1.0-4.8) k/uL Monocytes # (0-1.0) k/uL Eosinophils # (0-0.7) k/uL Basophils # (0-0.2) k/uL PT (10.0-12.5) sec INR (<1.2) APTT (22.0-30.0) sec Sodium (137-145) mmol/L Potassium (3.5-5.1) mmol/L Chloride (98-107) mmol/L Carbon Dioxide (22-30) mmol/L Anion Gap mmol/L BUN (9-20) mg/dL Creatinine (0.66-1.25) mg/dL Est GFR (CKD-EPI)AfAm (>60 ml/min/1.73 sqM) Est GFR (CKD-EPI)NonAf (>60 ml/min/1.73 sqM) Glucose (74-99) mg/dL Lactic Ac Sepsis Rflx Y Plasma Lactic Acid Luke (0.7-2.0) mmol/L Calcium (8.4-10.2) mg/dL Magnesium (1.6-2.3) mg/dL Total Bilirubin (0.2-1.3) mg/dL AST (17-59) U/L ALT (4-49) U/L Alkaline Phosphatase (38-126) U/L Troponin I (0.000-0.034) ng/mL Total Protein (6.3-8.2) g/dL Albumin (3.5-5.0) g/dL Urine Color Urine Appearance (Clear) Urine pH (5.0-8.0) Ur Specific [place] (1.001-1.035) Urine Protein (Negative) Urine Glucose (UA) (Negative) Urine Ketones (Negative) Urine Blood (Negative) Urine Nitrite (Negative) Urine Bilirubin (Negative) Urine Urobilinogen (<2.0) mg/dL Ur Leukocyte Esterase (Negative) Urine RBC (0-5) /hpf Urine WBC (0-5) /hpf Ur Squamous Epith Cells (0-4) /hpf Hyaline Casts (0-2) /lpf Urine Mucus (None) /hpf Influenza Type A (PCR) (Not Detectd) Influenza Type B (PCR) (Not Detectd) RSV (PCR) (Not Detectd) SARS-CoV-2 (PCR) (Not Detectd) - EKG Data -: EKG Interpreted by Me EKG Comments: 12-lead Electrocardiogram Interpretation Note EKG was reviewed and interpreted by myself. 12-lead ECG performed at 1329 is interpreted by me as revealing normal sinus rhythm at a rate of 62 beats per minute. Left axis deviation. SD interval is 191 ms, QRS duration is 113 ms, QTc is 435 ms.. There were no acute ST or T wave abnormalities to suggest myocardial ischemia or injury. Patient has chronic what appears to be J-point elevation in leads V2 and V3 seen on prior EKG from May 2020. R wave pr ogression across the precordium was satisfactory. By my interpretation this EKG is non-diagnostic for acute ischemia. Critical Care Time Critical Care Time: Yes Total Critical Care Time: 35 Disposition Clinical Impression: NSTEMI (non-ST elevated myocardial infarction), Weakness, Dehydration Narrative: brainstem mass with possible hemorhage. Disposition: OTHER INSTITUTION NOT DEFINED Condition: Serious Is patient prescribed a controlled substance at d/c from ED?: No Referrals: Ronal Marcos DO [Primary Care Provider] - 1-2 days Time of Disposition: 16:35 - Out of Hospital Transfer - Req. Specs Out of Hospital Transfer - Requested Specifics: Other Emergency Center (Transferred to [facility] for escalation of care. accepting physician is Dr. Peter.)
--- NOTE | 2023-07-15 14:57 | XR ---
EXAMINATION TYPE: XR shoulder complete LT DATE OF EXAM: 07/15/2023 2:41 PM CLINICAL INDICATION:Male, 82 years old with history of pain from recent fall; COMPARISON: None TECHNIQUE: XR shoulder complete LT; examined in AP, internally rotated and scapular Y projections. FINDINGS: No evidence of acute osseous pathology, joint dislocation, or soft tissue swelling. The re maining portions of the visualized chest are unremarkable. The humeral head is high riding with resp ect to the acromion.Mild degeneration changes of the acromion and distal clavicle. IMPRESSION: 1. No acute osseous pathology. 2. High riding humeral head with decreased acromiohumeral interval correlate for rotator cuff injury .
--- NOTE | 2023-07-15 14:59 | XR ---
EXAMINATION TYPE: XR chest 2V DATE OF EXAM: 07/15/2023 2:41 PM CLINICAL INDICATION:Male, 82 years old with history of Weakness; [facility] COMPARISON: Chest radiographs from 06/15/2020. TECHNIQUE: XR chest 2V Frontal and lateral views of the chest. FINDINGS: Lungs/Pleura: There is no evidence of pleural effusion, focal consolidation, or pneumothorax. Pulmonary vascularity: Unremarkable. Heart/mediastinum: Cardiomediastinal silhouette is unremarkable. Musculoskeletal: No acute osseous pathology. IMPRESSION: No acute cardiopulmonary disease/process.
--- NOTE | 2023-07-15 15:34 | CT ---
EXAMINATION TYPE: CT brain wo con DATE OF EXAM: 07/15/2023 COMPARISON: 06/15/2020 INDICATION: weakness DLP: 1260 mGycm, Automated exposure control for dose reduction was used. CONTRAST: None CT of the brain is performed utilizing 3 mm thick sections through the posterior fossa and 3 mm thick sections through the remaining calvarium. Study is performed within 24 hours of arrival to the hosp ital. There is a 2.0 cm hyperdense area within the posterior lateral left brain stem. This is displacing so me calcification towards the right. Underlying mass or hemorrhage should be considered. This finding is changing from the comparison of 2020. In discussion with the ER, patient has a known history of ma ss. No mass lesion is evident. No acute infarcts are evident. There is mild diffuse diminished density in the periventricular white matter, likely on the basis of chronic white matter ischemic changes. Ventricles and sulci are prominent for the patient age. There may be right shift of the fourth ventri pipe. Ventricles appear to be out of proportion to the sulci and there is some rounding of the tempor al horns. Correlate for hydrocephalus. Paranasal sinuses and mastoid air cells within the [id number] are clear. IMPRESSION: 1. 2 cm hyperdensity within the posterior-lateral left brain stem. Mass and hemorrhage are within t he differential. Patient has a history of mass. Recommend follow-up with MRI. Report was called to [facility] emergency room by Dr. Acevedo by telephone at the time of interpretation. 2. Correlate for hydrocephalus. 3. Chronic appearing periventricular white matter ischemic-type changes.
[2023-07-15 16:01] VITALS: TEMP 97.6
[2023-07-15 17:57] VITALS: BP 130/98; PULSE 60; RESP 18
== END 2023-07-15 17:42 | disposition other institution (70) ==
LOC: EC 12:13
DX: I21.4 Non-ST elevation (NSTEMI) myocardial infarction (principal); E86.0 Dehydration; I44.4 Left anterior fascicular block; E11.9 Type 2 diabetes mellitus without complications; I10 Essential (primary) hypertension; Z79.4 Long term (current) use of insulin; Z79.82 Long term (current) use of aspirin; Z11.52 Encounter for screening for COVID-19; Z88.2 Allergy status to sulfonamides; Z88.1 Allergy status to other antibiotic agents
CPT/HCPCS: 36415; 70450; 71046; 80053; 81001; 83605; 83735; 84484; 85025; 85610; 85730; 87040; 87636; 93005; 96360; 96361; 99291

== ENCOUNTER 2023-08-11 21:05 | Inpatient (IN) | payer MEDICARE, OTHER ==
[2023-08-11 22:19] LABS: Basophils # (A) 0.1 k/uL (0-0.2); Basophils % (A) 1 %; Eosinophils # (A) 0.4 k/uL (0-0.7); Eosinophils % (A) 4 %; HCT 42.7 % (39.0-53.0); HGB 13.4 gm/dL (13.0-17.5); Hypochromasia Slight; Lymphocytes % (A) 11 %; MCH 30.2 pg (25.0-35.0); MCHC 31.5 g/dL (31.0-37.0); MCV 96.1 fL (80.0-100.0); Monocytes # (A) 0.6 k/uL (0-1.0); Monocytes % (A) 7 %; Neutrophils # (A) 6.8 k/uL (1.3-7.7); Neutrophils % (A) 76 %; Platelet Count 155 k/uL (150-450); RBC 4.44 m/uL (4.30-5.90); RDW 15.4 % (11.5-15.5); WBC 8.9 k/uL (3.8-10.6)
--- NOTE | 2023-08-11 22:19 | ED ---
General Adult HPI - General Chief complaint: Extremity Problem,Nontraumatic Stated complaint: DVT Time Seen by Provider: 08/11/23 21:30 Source: EMS, RN notes reviewed, old records reviewed Mode of arrival: EMS - History of Present Illness Initial comments: Patient is a 82-year-old male who presents emergency department complaining of left lower extremity swelling. Is currently at a nursing facility. Has terminal brain cancer. Is DNR. Has baseline dementia but is currently at his baseline mental status. Patient's is at bedside. Today they noticed a blister on the top of his left foot as well as left lower extremity swelling. Unknown how long it has been going on for. Presents from [facility] on the [place]. They are concerned for possible DVT but also possible infectious cause. Leg is warm to touch. Patient declines any obvious acute complaints at this time, denying chest pain, fevers, chills, cough, abdominal pain. Is able to move the leg. Is not painful. Presents for further evaluation. Patient has a history of diabetes, hypertension, as well as 1 cardiac stent as well. - Related Data Home Medications Medication Instructions Recorded Confirmed INSULIN ASPART (NovoLOG) [NovoLOG 2 - 6 unit SQ AC-TID 05/21/14 07/15/23 (formulary)] lisinopriL [Zestril] 5 mg PO DAILY 05/21/14 07/15/23 Insulin Glargine,Hum.rec.anlog 15 units SQ HS 11/29/18 07/15/23 [Danielle Knowles] Aspirin EC [Ecotrin Low Dose] 81 mg PO DAILY 06/15/20 07/15/23 Lutein 20 mg PO BID 06/15/20 07/15/23 Metoprolol Succinate (ER) [Toprol 25 mg PO HS 06/15/20 07/15/23 XL] Omeprazole 20 mg PO HS 06/15/20 07/15/23 Ascorbic Acid [Vitamin C] 500 mg PO DAILY 07/15/23 07/15/23 Cholecalciferol (Vitamin D3) 50 unit PO DAILY 07/15/23 07/15/23 [Vitamin D3 (50 Mcg = 2000 Iu) Chew Tab] Cinnamon Bark [Cinnamon] 1,000 mg PO DAILY 07/15/23 07/15/23 Donepezil [Aricept] 10 mg PO HS 07/15/23 07/15/23 LORazepam [Ativan] 0.5 mg PO DAILY PRN 07/15/23 07/15/23 Levothyroxine Sodium [Euthyrox] 75 mcg PO DAILY 07/15/23 07/15/23 NIFEdipine XL [Procardia Xl] 30 mg PO HS 07/15/23 07/15/23 Rosuvastatin [Crestor] 20 mg PO HS 07/15/23 07/15/23 Zinc Gluconate [Zinc] 50 mg PO DAILY 07/15/23 07/15/23 Allergies Allergy/AdvReac Type Severity Reaction Status Date / Time Sulfa (Sulfonamide Allergy Rash/Hives Verified 07/15/23 13:29 Antibiotics) sulfamethoxazole Allergy Rash/Hives Verified 07/15/23 13:29 [From Novra] trimethoprim [From ] Allergy Rash/Hives Verified 07/15/23 13:29 Review of Systems ROS Statement: Those systems with pertinent positive or pertinent negative responses have been documented in the HPI. Review of Systems: CONST: Denies fever EYES: Denies blurry vision ENT: Denies nasal congestion C/V: Denies Chest pain RESP: Denies shortness of breath GI: Denies abdominal pain : Endorses left lower extremity edema up to the level of the hip. SKIN: Endorses blister on the dorsal aspect of left foot MSK: Denies joint pain. NEURO: Denies headache ROS Other: All systems not noted in ROS Statement are negative. Past Medical History Past Medical History: Cancer, Dementia, Diabetes Mellitus, Hyperlipidemia, Hypertension, Memory Impairment, Prostate Disorder Additional Past Medical History / Comment(s): C/O "CHOKING WITH FOOD, GETS GAS BUBBLE/PAIN, BARIUM TEST SHOWED NARROWING" ESOPHAGUS. MINOR CA PROSTATE, BEING MONITORED. History of Any Multi-Drug Resistant Organisms: None Reported Past Surgical History: Heart Catheterization With Stent, Hernia Repair Additional Past Surgical History / Comment(s): Bilat Cataract Surgery. ING HERNIA REPAIR. COLONOSCOPY, lt eye-detached retina Past Anesthesia/Blood Transfusion Reactions: Family History of Problems w/ Anesthesia Additional Past Anesthesia/Blood Transfusion Reaction / Comment(s): BROTHER: POST-OP DELIRIUM Date of Last Stent Placement:: Unknown Past Psychological History: No Psychological Hx Reported Smoking Status: Never smoker Past Alcohol Use History: None Reported Past Drug Use History: None Reported - Past Family History Mother Family Medical History: No Reported History Father Family Medical History: No Reported History Additional Family Medical History / Comment(s): no family history diagnosis, pt states everyone is pretty healthy General Exam - General Exam Comments Initial Comments: General: Appears in no acute distress. HEAD: Normal with no signs of head trauma. EYES: PERRLA, EOMI, conjunctiva normal, no discharge. ENT: Hearing grossly intact, normal oropharynx. RESPIRATORY: Clear breath sounds bilaterally. No wheezes, rales, or rhonchi. C/V: Regular rate and rhythm. S1 and S2 auscultated. Peripheral pulses 2+ intact throughout. ABD: Abd is soft, nontender, nondistended EXT: Left lower extremity edema. Warm to touch. Swollen from the toes to the left hip. Patient does have what appears to be a blister over the dorsal aspect of the left foot. Surrounding erythema. No obvious purulent discharge. SKIN: Patient has a blister over the dorsal aspect of his left foot. NEURO: Alert and oriented at his baseline. No focal deficits at this time. Course Vital Signs 08/11/23 08/12/23 08/12/23 21:20 00:32 04:18 Temperature 97.6 F Pulse Rate 71 78 73 Respiratory 18 18 18 Rate Blood Pressure 150/100 155/93 170/106 O2 Sat by Pulse 97 96 99 Oximetry Medical Decision Making - Medical Decision Making Was pt. sent in by a medical professional or institution ([facility], [facility], urgent care, hospital, or group home...) When possible be specific @ -No Did you speak to anyone other than the patient for history (EMS, parent, family, police, friend...)? What history was obtained from this source @ -No Did you review nursing and triage notes (agree or disagree)? Why? @ -I reviewed and agree with nursing and triage notes Were old charts reviewed (outside hosp., previous admission, EMS record, old EKG, old radiological studies, urgent care reports/EKG's, group home records)? Report findings @ -No old charts were reviewed Differential Diagnosis (chest pain, altered mental status, abdominal pain women, abdominal pain men, vaginal bleeding, weakness, fever, dyspnea, syncope, headache, dizziness, GI bleed, back pain, seizure, CVA, palpatations, mental health, musculoskeletal)? @ -Cellulitis, DVT, this list is not all inclusive. EKG interpreted by me (3pts min.). @ -As above X-rays interpreted by me (1pt min.). @ -X-rays of the left foot, tib-fib negative for any obvious acute injury. CT interpreted by me (1pt min.). @ -None done U/S interpreted by me (1pt. min.). @ -Ultrasound of the left lower extremity revealed extensive left lower extremity DVT. What testing was considered but not performed or refused? (CT, X-rays, U/S, labs)? Why? @ -None What meds were considered but not given or refused? Why? @ -None Did you discuss the management of the patient with other professionals (professionals i.e. , PA, FILM SPLICER, lab, RT, psych nurse, social media intern, documentation liaison, teacher, aoc director intelligence officer, manager case)? Give summary @ - I spoke with the admitting physician, Dr. Tucker who accepted the admission. Was smoking cessation discussed for >3mins.? @ -No Was critical care preformed (if so, how long)? @ -Yes, 32 minutes Were there social determinants of health that impacted care today? How? (Homelessness, low income, unemployed, alcoholism, drug addiction, transp ortation, low edu. Level, literacy, decrease access to med. care, fdc, rehab)? @ -No Was there de-escalation of care discussed even if they declined (Discuss DNR or withdrawal of care, Hospice)? DNR status @ -confirmed patient is DNR. What co-morbidities impacted this encounter? (DM, HTN, Smoking, COPD, CAD, Cancer, CVA, ARF, Chemo, Hep., AIDS, mental health diagnosis, sleep apnea, morbid obesity)? @ -None Was patient admitted / discharged? Hospital course, mention meds given and route, prescriptions, significant lab abnormalities, going to OR and other pertinent info. @ -Patient presents over concern for left leg edema. Likely cellulitic or infectious versus DVT. Will obtain venous duplex ultrasound as well as basic labs. Patient was in agreement this plan. Vital signs currently within acceptable limits. X-rays of the foot and the calf also be obtained to evaluate for any evidence of osteomyelitis. Patient was in agreement this plan. Vital signs within acceptable limits. Ultrasound reveals extensive left lower extremity DVT. X-ray is unremarkable. Remainder the workup unremarkable. I discussed results with patient's as well as patient. We will obtain CT brain as he has a history of recent falls prior to starting heparin. Patient will be admitted to the hospital for vascular evaluation. They were in agreement this plan. CT brain revealed no evidence of acute bleed. Patient was therefore started on heparin. He will be admitted to the hospital with vascular consult for management of DVT. Patient in agreement this plan. Patient in agreement this plan. I spoke with the admitting physician, Dr. Tucker who accepted the admission. Undiagnosed new problem with uncertain prognosis? @ -No Drug Therapy requiring intensive monitoring for toxicity (Heparin, Nitro, Insulin, Cardizem)? @ - heparin Were any procedures done? @ -No Diagnosis/symptom? @ -Left lower extremity DVT Acute, or Chronic, or Acute on Chronic? @ -Acute Uncomplicated (without systemic symptoms) or Complicated (systemic symptoms)? @ -Complicated Side effects of treatment? @ -None Exacerbation, Progression, or Severe Exacerbation] @ -No Poses a threat to life or bodily function? @ -Yes - Lab Data Result diagrams: 08/11/23 22:05 08/11/23 22:05 Lab Results 08/11/23 08/11/23 08/11/23 Range/Units 22:05 22:05 22:05 WBC 8.9 (3.8-10.6) k/uL RBC 4.44 (4.30-5.90) m/uL Hgb 13.4 (13.0-17.5) gm/dL Hct 42.7 (39.0-53.0) % MCV 96.1 (80.0-100.0) fL MCH 30.2 (25.0-35.0) pg MCHC 31.5 (31.0-37.0) g/dL RDW 15.4 (11.5-15.5) % Plt Count 155 (150-450) k/uL MPV 8.0 Neutrophils % 76 % Lymphocytes % 11 % Monocytes % 7 % Eosinophils % 4 % Basophils % 1 % Neutrophils # 6.8 (1.3-7.7) k/uL Lymphocytes # 1.0 (1.0-4.8) k/uL Monocytes # 0.6 (0-1.0) k/uL Eosinophils # 0.4 (0-0.7) k/uL Basophils # 0.1 (0-0.2) k/uL Hypochromasia Slight PT 10.8 (10.0-12.5) sec INR 1.0 (<1.2) APTT 24.0 (22.0-30.0) sec Sodium 134 L (137-145) mmol/L Potassium 4.4 (3.5-5.1) mmol/L Chloride 104 (98-107) mmol/L Carbon Dioxide 27 (22-30) mmol/L Anion Gap 3 mmol/L BUN 43 H (9-20) mg/dL Creatinine 1.24 (0.66-1.25) mg/dL Est GFR (CKD-EPI)AfAm 64 (>60 ml/min/1.73 sqM) Est GFR (CKD-EPI)NonAf 55 (>60 ml/min/1.73 sqM) Glucose 173 H (74-99) mg/dL Plasma Lactic Acid Luke (0.7-2.0) mmol/L Calcium 8.6 (8.4-10.2) mg/dL Total Bilirubin 0.7 (0.2-1.3) mg/dL AST 34 (17-59) U/L ALT 20 (4-49) U/L Alkaline Phosphatase 86 (38-126) U/L Total Protein 6.2 L (6.3-8.2) g/dL Albumin 3.3 L (3.5-5.0) g/dL // Range/Units 22:05 WBC (3.8-10.6) k/uL RBC (4.30-5.90) m/uL Hgb (13.0-17.5) gm/dL Hct (39.0-53.0) % MCV (80.0-100.0) fL MCH (25.0-35.0) pg MCHC (31.0-37.0) g/dL RDW (11.5-15.5) % Plt Count (150-450) k/uL MPV Neutrophils % % Lymphocytes % % Monocytes % % Eosinophils % % Basophils % % Neutrophils # (1.3-7.7) k/uL Lymphocytes # (1.0-4.8) k/uL Monocytes # (0-1.0) k/uL Eosinophils # (0-0.7) k/uL Basophils # (0-0.2) k/uL Hypochromasia PT (10.0-12.5) sec INR (<1.2) APTT (22.0-30.0) sec Sodium (137-145) mmol/L Potassium (3.5-5.1) mmol/L Chloride (98-107) mmol/L Carbon Dioxide (22-30) mmol/L Anion Gap mmol/L BUN (9-20) mg/dL Creatinine (0.66-1.25) mg/dL Est GFR (CKD-EPI)AfAm (>60 ml/min/1.73 sqM) Est GFR (CKD-EPI)NonAf (>60 ml/min/1.73 sqM) Glucose (74-99) mg/dL Plasma Lactic Acid Luke 1.2 (0.7-2.0) mmol/L Calcium (8.4-10.2) mg/dL Total Bilirubin (0.2-1.3) mg/dL AST (17-59) U/L ALT (4-49) U/L Alkaline Phosphatase (38-126) U/L Total Protein (6.3-8.2) g/dL Albumin (3.5-5.0) g/dL - EKG Data -: EKG Interpreted by Me EKG Comments: 12-lead Electrocardiogram Interpretation Note EKG was reviewed and interpreted by myself. 12-lead ECG performed at 2233 is interpreted by me as revealing normal sinus rhythm with PVCs at a rate of 71 beats per minute. Left axis deviation. MD interval is 165 ms, QRS duration is 108 ms, QTc is [address] segment T wave abnormalities present.. R wave progression across the precordium was delayed. By my interpretation this EKG is non-diagnostic for acute ischemia. No significant change from June 2023 Critical Care Time Critical Care Time: Yes Total Critical Care Time: 32 Disposition Clinical Impression: Deep vein thrombosis (DVT) of lower extremity Disposition: ADMITTED IP TO THIS HOSP Condition: Stable Time of Disposition: 01:10
[2023-08-11] MEDS: SODIUM CHLORIDE 0.9% 1,000 ML IV STA (22:21)
--- NOTE | 2023-08-11 22:27 | US ---
EXAMINATION TYPE: US venous doppler duplex LE LT DATE OF EXAM: 08/11/2023 10:17 PM COMPARISON: NONE CLINICAL INDICATION: Male, 82 years old with history of eval for dvt; Left leg swelling SIDE PERFORMED: Left TECHNIQUE: The lower extremity deep venous system is examined utilizing real time linear array sonog cynthia with graded compression, doppler sonography and color-flow sonography. VESSELS IMAGED: Common Femoral Vein Deep Femoral Vein Greater Saphenous Vein * Femoral Vein Popliteal Vein Small Saphenous Vein * Proximal Calf Veins (* superficial vessels) Left Leg: Positive for DVT from EIV through proximal calf veins Report was called to the emergency room physician by Dr. Acevedo by telephone at the time of interpre tation. IMPRESSION: 1. Deep venous thrombosis throughout the left lower extremity.
[2023-08-11 22:29] LABS: ALT 20 U/L (4-49); AST 34 U/L (17-59); African American GFR (CKD) 64 (>60 ml/min/1.73 sqM); Albumin 3.3 g/dL (3.5-5.0); Alkaline Phosphatase 86 U/L (38-126); Anion Gap 3 mmol/L; Blood Urea Nitrogen 43 mg/dL (9-20); Calcium 8.6 mg/dL (8.4-10.2); Carbon Dioxide 27 mmol/L (22-30); Chloride 104 mmol/L (98-107); Glucose 173 mg/dL (74-99); Non-African American GFR(CKD) 55 (>60 ml/min/1.73 sqM); Potassium 4.4 mmol/L (3.5-5.1); Prothrombin Time 10.8 sec (10.0-12.5); Sodium 134 mmol/L (137-145); Total Bilirubin 0.7 mg/dL (0.2-1.3); Total Protein 6.2 g/dL (6.3-8.2)
--- NOTE | 2023-08-12 01:13 | CT ---
EXAM: CT Head Without Intravenous Contrast CLINICAL HISTORY: ITS.REASON CT Reason: recent falls, history of brain cancer. TECHNIQUE: Axial computed tomography images of the head/brain without intravenous contrast. CTDI is 49.2 mGy and DLP is 1197.4 mGy-cm. This CT exam was performed using one or more of the following dose reduction techniques: automated exposure control, adjustment of the mA and/or kV according to patient size, and/or use of iterative reconstruction technique. COMPARISON: Head CT 07/15/2023. FINDINGS: No acute intracranial hemorrhage. The territorial newman-white matter differentiation is maintained throughout. Mass in the posterior midbrain measures approximately 2.3 x 1.7 cm in damages calcifications. Patient has history of brain cancer. This is stable when compared to 07/15/2023. Age-related cerebral volume loss. Periventricular and subcortical white matter hypoattenuation, consistent with chronic microangiopathy. The visualized orbits appear grossly unremarkable. The calvarium is intact. The visualized paranasal sinuses and mastoid air cells are grossly clear. IMPRESSION: Stable mass in the posterior brainstem, as described.
--- NOTE | 2023-08-12 01:17 | XR ---
EXAM: XR Left Foot Complete, 3 or More Views CLINICAL HISTORY: ITS.REASON XR Reason: eval for osteo TECHNIQUE: Frontal, lateral and oblique views of the left foot. COMPARISON: No relevant prior studies available. FINDINGS: Bones/joints: Osseous demineralization. No acute fracture or subluxation. Soft tissues: Severe dorsal soft tissue swelling. No radiopaque foreign body. Vasculature: Vascular calcifications. IMPRESSION: Severe dorsal soft tissue swelling.
--- NOTE | 2023-08-12 01:28 | XR ---
EXAM: XR Left Tibia and Fibula, 2 Views CLINICAL HISTORY: ITS.REASON XR Reason: eval for osteo TECHNIQUE: Frontal and lateral views of the left tibia and fibula. COMPARISON: No relevant prior studies available. FINDINGS: Bones/joints: No acute fracture. No dislocation. Mild medial knee joint space loss. Soft tissues: Unremarkable. No radiopaque foreign body. IMPRESSION: No acute osseous abnormalities.
[2023-08-12] MEDS ORDERED: ACETAMINOPHEN TAB 325 MG TAB PO PRN (01:31)
[2023-08-12] MEDS ORDERED: HEPARIN SODIUM 1,000 UN/ML (10ML VL) IV PRN (01:31)
[2023-08-12] MEDS ORDERED: NALOXONE 0.4 MG/ML 1 ML VIAL IV PRN (01:31)
[2023-08-12] MEDS: HEPARIN SOD,PORK IN 0.45% NACL 25,000 UNIT in 0.45% NACL 1 250ML.BAG IV SCH (01:59)
[2023-08-12] MEDS: HEPARIN SODIUM 1,000 UN/ML (10ML VL) IV ONE (02:04)
[2023-08-12 08:10] LABS: Glucose,Whole Blood 92 mg/dL (70-110)
--- NOTE | 2023-08-12 10:19 | CT ---
EXAMINATION TYPE: CT brain wo con CT DLP: 1172.4 mGycm, Automated exposure control for dose reduction was used. DATE OF EXAM: 08/12/2023 9:53 AM COMPARISON: 08/11/2023. CLINICAL INDICATION:Male, 82 years old with history of Fall, unwitnessed fall this morning, ams TECHNIQUE: Brain: Axial CT images of the brain were obtained with coronal and sagittal reformats created and rev iewed. Contrast used: None. Oral contrast used: None. FINDINGS: Brain: Extra-axial spaces: No abnormal extra-axial fluid collections. Ventricular system: Dilatation in proportion to cerebral atrophy. Cerebral parenchyma: Cerebral atrophy. No acute intraparenchymal hemorrhage or mass effect. The newman -white junction is well differentiated. Scattered hypoattenuating areas are seen within the white mat ter. Cerebellum: Stable mass in the posterior cranial fossa possibly within the medulla oblongata posterio rly near the inferior aspect of the fourth ventricle measuring 20 x 17 x 26 mm. Mass effect: No evidence of midline shift. Intracranial vasculature: unremarkable Soft tissues: Normal. Calvarium/osseous structures: No depressed skull fracture. Paranasal sinuses and mastoid air cells: Mild scattered paranasal sinus disease. Visualized orbits: Bilaterally aphakia. IMPRESSION: 1. No acute intracranial process. 2. Nonspecific white matter changes, likely secondary to chronic small vessel ischemic disease. 3. 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
[2023-08-12] MEDS ORDERED: DEXTROSE 50% SYRINGE 50 ML IVP PRN ×2 (11:39)
[2023-08-12 12:34] LABS: Glucose,Whole Blood 94 mg/dL (70-110)
[2023-08-12] MEDS: FAMOTIDINE 20 MG TAB PO SCH (12:34)
[2023-08-12] MEDS: METOPROLOL TARTRATE 12.5 MG TAB PO SCH (12:34)
[2023-08-12] MEDS: INSULIN ASPART (NovoLOG) 100 UNIT/ML VIAL SQ SCH (12:35)
--- NOTE | 2023-08-12 14:03 | P.GSCN ---
History of Present Illness Consult date: 08/12/23 Reason for Consult: Left femoral deep venous thrombosis with possible extension into the iliac system on the left. History of present illness: Patient is an 82-year-old male who lives in extended-care facility. Over the past few days his left lower extremity was noted to be edematous. He was transferred to the hospital last evening. Venous duplex was performed which demonstrated extensive left lower extremity deep venous thrombosis. The patient was subsequently admitted placed on IV heparin. Currently the patient denies any shortness of breath. I spoke directly with the patient's spouse who has been taking care of him. 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 The patient's indicates he has been declining from a mental standpoint as be coming afflicted by dementia. She relates no previous history of deep venous thrombosis of the patient. The patient does not utilize external compression support hose. Past Medical History Past Medical History: Cancer, Dementia, Diabetes Mellitus, Hyperlipidemia, Hypertension, Memory Impairment, Prostate Disorder Additional Past Medical History / Comment(s): C/O "CHOKING WITH FOOD, GETS GAS BUBBLE/PAIN, BARIUM TEST SHOWED NARROWING" ESOPHAGUS. MINOR CA PROSTATE, BEING MONITORED. History brain cancer History of Any Multi-Drug Resistant Organisms: None Reported Past Surgical History: Heart Catheterization With Stent, Hernia Repair Additional Past Surgical History / Comment(s): Bilat Cataract Surgery. ING HERNIA REPAIR. COLONOSCOPY, lt eye-detached retina Past Anesthesia/Blood Transfusion Reactions: Family History of Problems w/ Anesthesia Additional Past Anesthesia/Blood Transfusion Reaction / Comm: BROTHER: POST-OP DELIRIUM Date of Last Stent Placement:: Unknown Past Psychological History: No Psychological Hx Reported Smoking Status: Never smoker Past Alcohol Use History: None Reported Past Drug Use History: None Reported - Past Family History Mother Family Medical History: No Reported History Father Family Medical History: No Reported History Additional Family Medical History / Comment(s): no family history diagnosis, pt states everyone is pretty healthy Medications and Allergies Home Medications Medication Instructions Recorded Confirmed Type Acetaminophen Tab [Tylenol] 650 mg PO Q4H PRN 08/12/23 08/12/23 History Famotidine [Pepcid] 20 mg PO DAILY 08/12/23 08/12/23 History Insulin Degludec [Tresiba] 8 units SQ HS 08/12/23 08/12/23 History Insulin Lispro See Protocol SQ ACHS 08/12/23 08/12/23 History Metoprolol Tartrate [Lopressor] 12.5 mg PO BID 08/12/23 08/12/23 History Allergies Allergy/AdvReac Type Severity Reaction Status Date / Time Sulfa (Sulfonamide Allergy Rash/Hives Verified 08/12/23 10:32 Antibiotics) sulfamethoxazole Allergy Rash/Hives Verified 08/12/23 10:32 [From ] trimethoprim [From ] Allergy Rash/Hives Verified 08/12/23 10:32 Surgical - Exam Osteopathic Statement: *. No significant issues noted on an osteopathic structural exam other than those noted in the History and Physical/Consult. Vital Signs Temp Pulse Resp BP Pulse Ox 97.6 F 71 18 150/100 97 08/11/23 21:20 08/11/23 21:20 08/11/23 21:20 08/11/23 21:20 08/11/23 21:20 Patient Seen Date: 08/12/23 Patient Seen Time: 12:30 No carotid bruits are noted. Heart: Regular rate and rhythm. Lungs: Clear to auscultation bilaterally. Femoral, popliteal and pedal pulses are noted on the right. Femoral-popliteal pulses are noted on the left. The left lower extremity is significantly swollen all the toes are freely movable and nontender. A bulla is noted on the dorsal surface of the foot and 1 at the mid calf level. Both were unroofed expressing serous fluid. A few other areas of the leg were draining serous fluid. Stasis dermatitic changes are identified left lower extremity from the distal calf to the malleoli are level. Results - Labs 08/11/23 22:05 08/11/23 22:05 Abnormal Lab Results - Last 24 Hours (Table) 08/11/23 08/12/23 Range/Units 22:05 08:11 APTT 153.3 H* (22.0-30.0) sec Sodium 134 L (137-145) mmol/L BUN 43 H (9-20) mg/dL Glucose 173 H (74-99) mg/dL Total Protein 6.2 L (6.3-8.2) g/dL Albumin 3.3 L (3.5-5.0) g/dL Diabetes panel 05/26/24 Range/Units 22:05 Sodium 134 L (137-145) mmol/L Potassium 4.4 (3.5-5.1) mmol/L Chloride 104 (98-107) mmol/L Carbon Dioxide 27 (22-30) mmol/L BUN 43 H (9-20) mg/dL Creatinine 1.24 (0.66-1.25) mg/dL Glucose 173 H (74-99) mg/dL Calcium 8.6 (8.4-10.2) mg/dL AST 34 (17-59) U/L ALT 20 (4-49) U/L Alkaline Phosphatase 86 (38-126) U/L Total Protein 6.2 L (6.3-8.2) g/dL Albumin 3.3 L (3.5-5.0) g/dL Calcium panel 08/11/23 Range/Units 22:05 Calcium 8.6 (8.4-10.2) mg/dL Albumin 3.3 L (3.5-5.0) g/dL Pituitary panel 08/11/23 Range/Units 22:05 Sodium 134 L (137-145) mmol/L Potassium 4.4 (3.5-5.1) mmol/L Chloride 104 (98-107) mmol/L Carbon Dioxide 27 (22-30) mmol/L BUN 43 H (9-20) mg/dL Creatinine 1.24 (0.66-1.25) mg/dL Glucose 173 H (74-99) mg/dL Calcium 8.6 (8.4-10.2) mg/dL Adrenal panel 08/11/23 Range/Units 22:05 Sodium 134 L (137-145) mmol/L Potassium 4.4 (3.5-5.1) mmol/L Chloride 104 (98-107) mmol/L Carbon Dioxide 27 (22-30) mmol/L BUN 43 H (9-20) mg/dL Creatinine 1.24 (0.66-1.25) mg/dL Glucose 173 H (74-99) mg/dL Calcium 8.6 (8.4-10.2) mg/dL Total Bilirubin 0.7 (0.2-1.3) mg/dL AST 34 (17-59) U/L ALT 20 (4-49) U/L Alkaline Phosphatase 86 (38-126) U/L Total Protein 6.2 L (6.3-8.2) g/dL Albumin 3.3 L (3.5-5.0) g/dL - Imaging Additional studies: Venous duplex imaging and report were reviewed Assessment and Plan Assessment: Extensive left lower extremity deep venous thrombosis My review of the ultrasound did not demonstrate that the external iliac vein was imaged however the official report indicates thrombus located in the external iliac vein. History of brain tumor which is nonoperative. Leg edema secondary to deep venous thrombosis. Plan: I had a long discussion with the patient's spouse who was quite attentive to her 's needs. She indicated to me that neurosurgery recommended no neurosurgical intervention. Additionally there is no previous history of deep venous thrombosis. Had a long discussion with the patient and spouse in reference to deep venous thrombosis and his subsequent leg edema. Conservatively I recommended keeping the leg elevated and applying a ERIS hose. This should help reduce the amount of edema and hopefully stop the drainage from occurring. In reference to anticoagulation I will ask neurology to see if the patient is a candidate for anticoagulation given his brain tumor. I also discussed with the patient's spouse venous thrombectomy to help reduce the leg edema and if the patient is not a anticoagulation candidate then placement of an IVC filter. She expressed to me that the family does not wish any "intervention" and that this has been a longstanding desire/plan of the family. I wait neuro evaluation, continue anticoagulation until such time. We will follow. Time with Patient: Greater than 30
[2023-08-12 16:34] LABS: Appearance,Urine Clear (Clear); Bilirubin,Urine Negative (Negative); Blood,Urine Trace (Negative); Color,Urine Light Yellow; Glucose,Urine (UA) Negative (Negative); Granular Casts,Urine 1 /lpf (0); Hyaline Casts,Urine 1 /lpf (0-2); Ketones,Urine Negative (Negative); Leukocyte Esterase,Urine Negative (Negative); Mucus,Urine Rare /hpf; Nitrite,Urine Negative (Negative); Protein,Urine 1+ (Negative); RBC,Urine 7 /hpf (0-5); Specific Gravity,Urine 1.019 (1.001-1.035); Squamous Epithelial Cell,Urine 1 /hpf (0-4); Urobilinogen,Urine <2.0 mg/dL (<2.0); WBC,Urine 1 /hpf (0-5)
--- NOTE | 2023-08-12 16:57 | P.HPIM ---
History of Present Illness H&P Date: 08/12/23 Chief Complaint: Left leg swelling This is a pleasant 82-year-old patient who follows with Dr. Marcos. History is primarily obtained by the at the bedside. Chronic stable medical conditions include dementia, diabetes, hypertension, hyperlipidemia, prostate cancer which is being followed by Dr. Edmonds. CAD with stent, follows with Dr. Mcleod. Patient also has longstanding brain tumor which has slowly been growing. [place] to be cancerous. But family decided not for any intervention. Patient has significant dementia. Recognizes his sometimes. Incontinent of bowel and urine. Able to feed himself. Does use a walker. Unsteady. Currently a resident of [facility]. [facility] on the [place] Patient was brought in because of left leg swelling probably noticed for last 2 to 3 days. Discovered to have a DVT in the ER. Started on IV heparin. Review of systems cannot be obtained patient himself cannot give much of a history. Social history: No smoking. No alcohol. . Currently lives at [facility]. Used to work for the [employer]. Physical examination: VITAL SIGNS: 97.6, 71, 18, 151/100, 97% room air upon presentation GENERAL: BMI 25.8, rate in a recliner comfortable awake. EYES: Pupils equal. Conjunctiva carl l. HEENT: External appearance of nose and ears normal, oral cavity grossly normal. NECK: JVD not raised; masses not palpable. HEART: First and second heart sounds are normal; no edema. LUNGS: Respiratory rate normal; clear to auscultation. ABDOMEN: Soft, nontender, liver spleen not palpable, no masses palpable. PSYCH: Patient can state his name. Not really able to hold conversations. MUSCULOSKELETAL:No Clubbing/cyanosis;muscles-grossly intact. OA -EXTREMITIES: Swelling of the left lower extremity compared to the right up to the thigh NEUROLOGICAL: Cranial nerves grossly intact; no facial asymmetry, power and se nsation grossly intact. LYMPHATICS: No lymph nodes palpable in the axilla and neck INVESTIGATIONS, reviewed in the clinical context: August 11, 2023: White count 8.9 hemoglobin 13.4 platelets 155 sodium 134 potassium 4.4 BUN 43 creatinine 1.24 Blood glucose 173 Venous Doppler left lower extremity: Positive from external iliac vein through proximal calf veins. EKG tracing personally reviewed by me-normal sinus rhythm. Nonspecific T wave changes. CT brain: Mass in the posterior midbrain 2.3 x 1.7 cm in the with calcifications. Age-related changes. Assessment and plan: -Acute left lower extremity DVT extending from external iliac vein down to the calf veins. In a patient with decreased activity. Patient started on IV heparin in the ER. Patient was seen by Dr. Del Troo from vascular earlier. He did offer a IVC filter. Lengthy discussion was held with patient's was reluctant for any interventions. Also patient daughter was present. Pros and cons were discussed of everything including including no anticoagulation. They simply want the patient to be comfortable. At this point they have decided to proceed with anticoagulation. They understand the risk of possible bleeding into the brain tumor. They do not want any IVC filter at this point. Patient is also risk for falls-including the risk with anticoagulation. -discussed with the family. -IV heparin monitoring Follow PTT -Severe cognitive impairment from Alzheimer's dementia Patient is just about able to recognize his sometimes -Chronic gait dysfunction, uses a walker -Essential hypertension Lopressor 12.5 twice daily -Diabetes mellitus type 2, chronically insulin Patient is only taking 8 units of Tresiba. Start metformin 500 mg 3 times daily. Accu-Cheks with sliding scale -GERD Pepcid -DNR Care was discussed with the patient's and daughter at the bedside. Patient be switched over to Xarelto tonight. Advance care planning [August 12, 2023] This was discussed with the patient's and the daughter at the bedside. Lengthy discussion was held. They just want patient not to suffer. They have decided to proceed with DNR. Also hospice was discussed. They would consider down the road depending on patient's clinical course. Questions were answered. Time spent about 30 minutes Past Medical History Past Medical History: Cancer, Dementia, Diabetes Mellitus, Hyperlipidemia, Hypertension, Memory Impairment, Prostate Disorder Additional Past Medical History / Comment(s): C/O "CHOKING WITH FOOD, GETS GAS B UBBLE/PAIN, BARIUM TEST SHOWED NARROWING" ESOPHAGUS. MINOR CA PROSTATE, BEING MONITORED. History of Any Multi-Drug Resistant Organisms: None Reported Past Surgical History: Heart Catheterization With Stent, Hernia Repair Additional Past Surgical History / Comment(s): Bilat Cataract Surgery. ING HERNIA REPAIR. COLONOSCOPY, lt eye-detached retina Past Anesthesia/Blood Transfusion Reactions: Family History of Problems w/ Anesthesia Additional Past Anesthesia/Blood Transfusion Reaction / Comment(s): BROTHER: POST-OP DELIRIUM Date of Last Stent Placement:: Unknown Past Psychological History: No Psychological Hx Reported Smoking Status: Never smoker Past Alcohol Use History: None Reported Past Drug Use History: None Reported - Past Family History Mother Family Medical History: No Reported History Father Family Medical History: No Reported History Additional Family Medical History / Comment(s): no family history diagnosis, pt states everyone is pretty healthy Medications and Allergies Home Medications Medication Instructions Recorded Confirmed Type Acetaminophen Tab [Tylenol] 650 mg PO Q4H PRN 08/12/23 08/12/23 History Famotidine [Pepcid] 20 mg PO DAILY 08/12/23 08/12/23 History Insulin Degludec [Tresiba] 8 units SQ HS 08/12/23 08/12/23 History Insulin Lispro See Protocol SQ ACHS 08/12/23 08/12/23 History Metoprolol Tartrate [Lopressor] 12.5 mg PO BID 08/12/23 08/12/23 History Allergies Allergy/AdvReac Type Severity Reaction Status Date / Time Sulfa (Sulfonamide Allergy Rash/Hives Verified 08/12/23 10:32 Antibiotics) sulfamethoxazole Allergy Rash/Hives Verified 08/12/23 10:32 [From Novra] trimethoprim [From ] Allergy Rash/Hives Verified 08/12/23 10:32 Physical Exam Vitals: Vital Signs Temp Pulse Resp BP Pulse Ox 08/12/23 11:21 81 18 163/96 96 08/12/23 04:18 73 18 170/106 99 08/12/23 00:32 78 18 155/93 96 08/11/23 21:20 97.6 F 71 18 150/100 97 Intake and Output 08/11/23 08/12/23 08/12/23 22:59 06:59 14:59 Intake Total 136.183 Balance 136.183 Intake: Intake, IV Titration 136.183 Amount Heparin Sod,Pork in 0.45% 136.183 NaCl 25,000 unit In 0.45 % NaCl 1 250ml.bag @ 18 UNITS/KG/HR 14.696 mls/hr IV .Q17H1M CHIARA Rx#: [id number] Other: Weight 81.647 kg Results CBC & Chem 7: 08/11/23 22:05 05/26/24 22:05 Labs: Abnormal Lab Results - Last 24 Hours (Table) 08/11/23 08/12/23 Range/Units 22:05 08:11 APTT 153.3 H* (22.0-30.0) sec Sodium 134 L (137-145) mmol/L BUN 43 H (9-20) mg/dL Glucose 173 H (74-99) mg/dL Total Protein 6.2 L (6.3-8.2) g/dL Albumin 3.3 L (3.5-5.0) g/dL
[2023-08-12 17:10] LABS: Glucose,Whole Blood 114 mg/dL (70-110)
[2023-08-12] MEDS: Rivaroxaban Initiation Dose--VTE 15 MG TAB PO SCH (20:23)
[2023-08-12] MEDS ORDERED: NON FORMULARY DRUG (Insulin Degludec [Tresiba] 100 UNIT/ML Ml) SQ SCH (21:00)
[2023-08-13 03:56] LABS: Basophils % (A) 1 %; Eosinophils # (A) 0.2 k/uL (0-0.7); Eosinophils % (A) 3 %; HGB 12.9 gm/dL (13.0-17.5); Hypochromasia Slight; Lymphocytes # (A) 0.9 k/uL (1.0-4.8); Lymphocytes % (A) 14 %; MCH 30.3 pg (25.0-35.0); MCHC 31.4 g/dL (31.0-37.0); MCV 96.6 fL (80.0-100.0); Mean Platelet Volume 9.1; Monocytes # (A) 0.7 k/uL (0-1.0); Monocytes % (A) 10 %; Neutrophils # (A) 4.6 k/uL (1.3-7.7); Neutrophils % (A) 71 %; Platelet Count 100 k/uL (150-450); RBC 4.25 m/uL (4.30-5.90); RDW 15.3 % (11.5-15.5); WBC 6.5 k/uL (3.8-10.6)
[2023-08-13 04:09] LABS: ALT 20 U/L (4-49); AST 35 U/L (17-59); African American GFR (CKD) 74 (>60 ml/min/1.73 sqM); Albumin 2.9 g/dL (3.5-5.0); Alkaline Phosphatase 78 U/L (38-126); Anion Gap 3 mmol/L; Blood Urea Nitrogen 34 mg/dL (9-20); Calcium 8.3 mg/dL (8.4-10.2); Carbon Dioxide 27 mmol/L (22-30); Chloride 107 mmol/L (98-107); Globulin 2.9 g/dL; Glucose 123 mg/dL (74-99); Non-African American GFR(CKD) 64 (>60 ml/min/1.73 sqM); Potassium 4.2 mmol/L (3.5-5.1); Sodium 137 mmol/L (137-145); Total Protein 5.8 g/dL (6.3-8.2)
[2023-08-13 08:18] LABS: Glucose,Whole Blood 114 mg/dL (70-110)
[2023-08-13 08:48] VITALS: RESP 18
[2023-08-13 12:21] LABS: Glucose,Whole Blood 127 mg/dL (70-110)
[2023-08-13 12:45] VITALS: PULSE 66; TEMP 97.9
--- NOTE | 2023-08-13 13:10 | P.DS ---
Providers Date of admission: 08/12/23 01:32 Expected date of discharge: 08/13/23 Attending physician: Paco Tucker Consults: 08/12/23 01:31 Consult Physician Routine Consulting Provider: Karan Del Toro Consult Reason/Comments: LLE dvt Do you want consulting provider notified?: Yes Primary care physician: [facility] Course: Chief Complaint: Left leg swelling This is a pleasant 82-year-old patient who follows with Dr. Marcos. History is primarily obtained by the at the bedside. Chronic stable medical conditions include dementia, diabetes, hypertension, hyperlipidemia, prostate cancer which is being followed by Dr. Edmonds. CAD with stent, follows with Dr. Mcleod. Patient also has longstanding brain tumor which has slowly been growing. [place] to be cancerous. But family decided not for any intervention. Patient has significant dementia. Recognizes his sometimes. Incontinent of bowel and urine. Able to feed himself. Does use a walker. Unsteady. Currently a resident of [facility]. [facility] on the [place] Patient was brought in because of left leg swelling probably noticed for last 2 to 3 days. Discovered to have a DVT in the ER. Started on IV heparin. August 13, 2023: Patient to continue on Xarelto. Pros and cons and including possible [place] bleed in the brain was discussed yesterday. Family does not want IVC filter intervention. Patient able to tolerate a diet. Otherwise comfortable. Awaiting ERIS stockings for the left leg. If patient's clinical symptoms to get worse then hospice will be appropriate. and daughter both in agreements for the same. Discussion and discharge planning more than 35 minutes Social history: No smoking. No alcohol. . Currently lives at [facility]. Used to work for the [employer]. Physical examination: VITAL SIGNS: 97.9, 66, 18, 143 x 77, 98% room air GENERAL: Reclining in bed comfortable EYES: Pupils equal. Conjunctiva carl l. HEENT: External appearance of nose and ears normal, oral cavity grossly normal. NECK: JVD not raised; masses not palpable. HEART: First and second heart sounds are normal; no edema. LUNGS: Respiratory rate normal; clear to auscultation. ABDOMEN: Soft, nontender, liver spleen not palpable, no masses palpable. PSYCH: Patient can state his name. Not really able to hold conversations. MUSCULOSKELETAL:No Clubbing/cyanosis;muscles-grossly intact. OA -EXTREMITIES: Swelling of the left lower extremity compared to the right up to the thigh INVESTIGATIONS, reviewed in the clinical context: August 12: White count 6.5 hemoglobin 12.9 platelets 100 potassium 4.2 creatinine 1.09 August 11, 2023: White count 8.9 hemoglobin 13.4 platelets 155 sodium 134 potassium 4.4 BUN 43 creatinine 1.24 Blood glucose 173 Venous Doppler left lower extremity: Positive from external iliac vein through proximal calf veins. EKG tracing personally reviewed by me-normal sinus rhythm. Nonspecific T wave changes. CT brain: Mass in the posterior midbrain 2.3 x 1.7 cm in the with calcifications. Age-related changes. Assessment and plan: -Acute left lower extremity DVT extending from external iliac vein down to the calf veins. In a patient with decreased activity. Patient started on IV heparin in the ER.-Switched over to Xarelto Patient was seen by Dr. Del Toro from vascular earlier. He did offer a IVC filter. Lengthy discussion was held with patient's was reluctant for any interventions. Also patient daughter was present. Pros and cons were discussed of everything including including no anticoagulation. They simply want the patient to be comfortable. At this point they have decided to proceed with anticoagulation. They understand the risk of possible bleeding into the brain tumor. They do not want any IVC filter at this point. Patient is also risk for falls-including the risk with anticoagulation. -discussed with the family. Eris perezing -IV heparin monitoring: Discontinued Follow PTT -Severe cognitive impairment from Alzheimer's dementia t able to recognize his sometimes -Chronic gait dysfunction, uses a walker -Essential hypertension Lopressor 12.5 twice daily -Diabetes mellitus type 2, chronically insulin Patient is only taking 8 units of Tresiba.-Discontinued . Accu-Cheks with sliding scale -GERD Pepcid -DNR Advance care planning [August 12, 2023] This was discussed with the patient's and the daughter at the bedside. Lengthy discussion was held. They just want patient not to suffer. They have decided to proceed with DNR. Also hospice was discussed. They would consider down the road depending on patient's clinical course. Questions were answered. Time spent about 30 minutes Disposition: [facility] on [facility] Past Medical History Past Medical History: Cancer, Dementia, Diabetes Mellitus, Hyperlipidemia, Hypertension, Memory Impairment, Prostate Disorder Additional Past Medical History / Comment(s): C/O "CHOKING WITH FOOD, GETS GAS BUBBLE/PAIN, BARIUM TEST SHOWED NARROWING" ESOPHAGUS. MINOR CA PROSTATE, BEING MONITORED. History of Any Multi-Drug Resistant Organisms: None Reported Past Surgical History: Heart Catheterization With Stent, Hernia Repair Additional Past Surgical History / Comment(s): Bilat Cataract Surgery. ING HERNIA REPAIR. COLONOSCOPY, lt eye-detached retina Past Anesthesia/Blood Transfusion Reactions: Family History of Problems w/ Anesthesia Additional Past Anesthesia/Blood Transfusion Reaction / Comment(s): BROTHER: POST-OP DELIRIUM Date of Last Stent Placement:: Unknown Past Psychological History: No Psychological Hx Reported Smoking Status: Never smoker Past Alcohol Use History: None Reported Past Drug Use History: None Reported Plan - Discharge Summary New Discharge Prescriptions: New Rivaroxaban InitiationDose-VTE [Xarelto Initiation Dosing for VTE Treatment] 15 mg PO BID tab Continue Acetaminophen Tab [Tylenol] 650 mg PO Q4H PRN PRN Reason: Pain Metoprolol Tartrate [Lopressor] 12.5 mg PO BID Insulin Lispro See Protocol SQ ACHS Famotidine [Pepcid] 20 mg PO DAILY Discontinued Insulin Degludec [Tresiba] 8 units SQ HS Discharge Medication List Acetaminophen Tab [Tylenol] 650 mg PO Q4H PRN 08/12/23 [History] Famotidine [Pepcid] 20 mg PO DAILY 08/12/23 [History] Insulin Lispro See Protocol SQ ACHS 08/12/23 [History] Metoprolol Tartrate [Lopressor] 12.5 mg PO BID 08/12/23 [History] Rivaroxaban InitiationDose-VTE [Xarelto Initiation Dosing for VTE Treatment] 15 mg PO BID tab 08/13/23 [Rx] Follow up Appointment(s)/Referral(s): Ronal Marcos DO [Primary Care Provider] - 1-2 days
[2023-08-13 16:36] VITALS: BP 157/98
== END 2023-08-13 16:31 | DRG 300 ==
LOC: EC 21:05 → 5NMEDONC 08-12 01:32
PROVIDERS: ADMIT Hospitalist; ATTEND Hospitalist
DX: I82.422 Acute embolism and thrombosis of left iliac vein (principal); C71.9 Malignant neoplasm of brain, unspecified; C61 Malignant neoplasm of prostate; I82.4Z2 Acute embolism and thrombosis of unspecified deep veins of left distal lower extremity; G30.9 Alzheimer's disease, unspecified; F02.80 Dementia in other diseases classified elsewhere, unspecified severity, without behavioral disturbance, psychotic disturbance, mood disturbance, and anxiety; E11.9 Type 2 diabetes mellitus without complications; I10 Essential (primary) hypertension; Z79.4 Long term (current) use of insulin; Z66 Do not resuscitate; Z28.310 Unvaccinated for COVID-19; R26.9 Unspecified abnormalities of gait and mobility; K21.9 Gastro-esophageal reflux disease without esophagitis; E78.5 Hyperlipidemia, unspecified; R15.9 Full incontinence of feces; R32 Unspecified urinary incontinence; R29.6 Repeated falls; I25.10 Atherosclerotic heart disease of native coronary artery without angina pectoris; Z79.899 Other long term (current) drug therapy; Z95.5 Presence of coronary angioplasty implant and graft; Z88.1 Allergy status to other antibiotic agents; Z88.2 Allergy status to sulfonamides
CPT/HCPCS: 36415; 70450; 80053; 81001; 83605; 85025; 85610; 85730; 87040; 87070; 87075; 87205; 93005; 96361; 96365; 96366; 99291